=== PATIENT | female | born 1960 | race African-American/Black ===

== ENCOUNTER 2016-10-25 09:51 | Inpatient (IN) | payer MEDICARE, MEDICAID ==
[~2016-10-25] VITALS: Ht 160 cm; Wt 82.6 kg
[2016-10-25] MEDS: IPRATROPIUM/ALBUTEROL 0.5-3(2.5)MG/3ML NEB HHN SCH (00:45)
[~2016-10-25 09:51] MED LIST: CLOP75TA33 PO; DES150 PO; GABA-531 PO; LOVA40TA73 PO; NIFE90TA34 PO
[2016-10-25] MEDS ORDERED: ALBUTEROL (0.083%) 2.5MG/3ML NEB HHN STA (09:55)
[2016-10-25] MEDS ORDERED: IPRATROPIUM BROMIDE (0.02%) 0.5MG/2.5ML NEB HHN STA (09:55)
[2016-10-25] MEDS ORDERED: METHYLPREDNISOLONE SOD SUCC 125 MG/2 ML VIAL IV STA (09:55)
[2016-10-25 10:23] LABS: EOSINOPHILS % 3.5 % (0.0-5.0); HEMATOCRIT. 34.2 % (36.0-48.0); HEMOGLOBIN. 11.6 g/dL (12.0-16.0); LYMPHOCYTES % 21.9 % (20.0-50.0); MEAN CORPUSCULAR HEMOGLOBIN 31.5 pg (28.0-32.0); MEAN CORPUSCULAR VOLUME 92.9 fL (81.0-99.0); MEAN PLATELET VOLUME 8.2 fl (7.4-10.4); MONOCYTES % 6.7 % (2.0-8.0); NEUTROPHILS % 66.9 % (40.0-76.0); PLATELET 223 x1000/uL (130-400); RED BLOOD CELL COUNT 3.68 mill/uL (4.2-5.4); RED CELL DISTRIBUTION WIDTH 15.7 % (11.6-14.6)
[2016-10-25 10:41] LABS: CARBON DIOXIDE 31 mEq/L (21-32); CHLORIDE 101 mEq/L (98-107); PHOSPHORUS 3.2 mg/dL (2.5-4.9); TROPONIN I < 0.02 ng/mL (0.00-0.04)
[2016-10-25] MEDS ORDERED: LEVOFLOXACIN 500MG PREMIX 100 ML IV ONE (10:45)
[2016-10-25 10:47] LABS: INR 1.1; PARTIAL THROMBOPLASTIN TIME 39.4 sec (23.4-31.0); PROTHROMBIN TIME 11.4 sec (9.4-11.6)
[2016-10-25 12:17] LABS: CLARITY URINE CLEAR (CLEAR); COLOR URINE YELLOW (YELLOW); GLUCOSE URINE NEGATIVE (NEGATIVE); KETONES URINE NEGATIVE (NEGATIVE); LEUKOCYTE ESTERASE URINE NEGATIVE (NEGATIVE); NITRITE URINE NEGATIVE (NEGATIVE); OCCULT BLOOD URINE NEGATIVE (NEGATIVE); PH URINE 7.5 (4.5-8.0); PROTEIN URINE 2+ (NEGATIVE); SPECIFIC GRAVITY URINE 1.012 (1.005-1.030); UROBILINOGEN URINE 0.2 E.U./dL (0.2-1.0)
[2016-10-25 12:38] VITALS: BP 139/53
[2016-10-25 12:46] VITALS: BP 139/53
[2016-10-25] MEDS: CLONIDINE 0.2MG TABLET PO SCH ×2 (15:07→21:37)
[2016-10-25 16:00] VITALS: BP 144/72
[2016-10-25] MEDS ORDERED: ACETAMINOPHEN 325MG TABLET PO PRN (17:00)
[2016-10-25] MEDS: ENOXAPARIN 30MG/0.3ML SYR SUBCUT SCH ×2 (17:00→18:22)
[2016-10-25] MEDS ORDERED: GUAIFENESIN 200MG/10ML SUGAR FREE UDC PO PRN (17:00)
[2016-10-25] MEDS ORDERED: ERGOCALCIFEROL 50000UNITS CAPSULE PO SCH (17:00)
[2016-10-25] MEDS ORDERED: DEXTROSE 50% WATER 50ML SYRINGE IV PRN (18:15)
[2016-10-25] MEDS: CINACALCET HCL 30MG TABLET PO SCH (18:20)
[2016-10-25] MEDS: FERROUS SULFATE 325MG TABLET PO SCH (18:20)
[2016-10-25] MEDS: CALCIUM ACETATE 667MG CAPSULE PO SCH (18:20)
[2016-10-25] MEDS: CLOPIDOGREL 75MG TABLET PO SCH (18:21)
[2016-10-25] MEDS: PREDNISONE 20MG TABLET PO SCH (18:21)
[2016-10-25] MEDS: DOCUSATE SODIUM 100MG CAPSULE PO SCH (18:21)
[2016-10-25] MEDS: NIFEDIPINE XL 90MG TAB PO SCH (18:21)
[2016-10-25] MEDS: INSULIN LISPRO 100 UNITS/ML SUBCUT SCH ×2 (18:47→21:38)
[2016-10-25 20:00] VITALS: BP 165/71
[2016-10-25] MEDS ORDERED: NORTRIPTYLINE HCL 10MG CAPSULE PO NR (21:00)
[2016-10-25] MEDS ORDERED: CARVEDILOL 12.5MG TABLET PO SCH (21:00)
[2016-10-25] MEDS ORDERED: PREGABALIN 50 MG CAPSULE PO SCH (21:00)
[2016-10-25] MEDS: GUAIFENESIN 600MG ER TABLET PO SCH (21:36)
[2016-10-25] MEDS: CARVEDILOL 12.5MG TABLET PO SCH (21:36)
[2016-10-25] MEDS: PREGABALIN 50 MG CAPSULE PO SCH (21:37)
[2016-10-25] MEDS: BLOOD SUGAR DIAGNOSTIC STRIP TEST SCH (21:38)
[2016-10-25] MEDS: INSULIN DETEMIR UD 100 UNITS/ML SYR SUBCUT SCH (21:40)
[2016-10-25 23:39] LABS: CREATINE KINASE 159 IU/L (26-192); CREATINE KINASE MB FRACTION 1.4 ng/mL (0.5-3.6); TROPONIN I < 0.02 ng/mL (0.00-0.04)
[2016-10-26 00:23] VITALS: BP 128/69
[2016-10-26] MEDS: TEMAZEPAM 15MG CAPSULE PO PRN ×2 (00:25→21:59)
[2016-10-26 04:00] VITALS: BP 144/65
[2016-10-26] MEDS: IPRATROPIUM/ALBUTEROL 0.5-3(2.5)MG/3ML NEB HHN SCH ×2 (04:45→16:06)
[2016-10-26] MEDS: CLONIDINE 0.2MG TABLET PO SCH ×3 (05:56→21:59)
[2016-10-26 06:30] LABS: HEMATOCRIT. 33.9 % (36.0-48.0); HEMOGLOBIN. 11.4 g/dL (12.0-16.0); MEAN CORPUSCULAR HEMOGLOBIN 31.5 pg (28.0-32.0); MEAN CORPUSCULAR VOLUME 93.5 fL (81.0-99.0); MEAN PLATELET VOLUME 8.5 fl (7.4-10.4); PLATELET 204 x1000/uL (130-400); RED BLOOD CELL COUNT 3.63 mill/uL (4.2-5.4); RED CELL DISTRIBUTION WIDTH 15.8 % (11.6-14.6)
[2016-10-26 06:57] LABS: CARBON DIOXIDE 27 mEq/L (21-32); CHLORIDE 100 mEq/L (98-107); CREATINE KINASE 140 IU/L (26-192); CREATINE KINASE MB FRACTION 1.2 ng/mL (0.5-3.6); HDL CHOLESTEROL 57 mg/dL (40-59); LDL CHOLESTEROL 61 mg/dL (5-100); PHOSPHORUS 2.2 mg/dL (2.5-4.9); TROPONIN I < 0.02 ng/mL (0.00-0.04)
[2016-10-26] MEDS: BLOOD SUGAR DIAGNOSTIC STRIP TEST SCH ×4 (07:13→21:59)
[2016-10-26 08:00] VITALS: BP 152/79
[2016-10-26] MEDS: FERROUS SULFATE 325MG TABLET PO SCH ×3 (08:10→17:25)
[2016-10-26] MEDS: DOCUSATE SODIUM 100MG CAPSULE PO SCH ×2 (08:21→17:25)
[2016-10-26] MEDS: GUAIFENESIN 600MG ER TABLET PO SCH ×2 (08:21→21:59)
[2016-10-26] MEDS: NIFEDIPINE XL 90MG TAB PO SCH (08:22)
[2016-10-26] MEDS: CALCIUM ACETATE 667MG CAPSULE PO SCH ×2 (08:22→12:45)
[2016-10-26] MEDS: CINACALCET HCL 30MG TABLET PO SCH (08:22)
[2016-10-26] MEDS: CARVEDILOL 12.5MG TABLET PO SCH ×2 (08:22→21:59)
[2016-10-26] MEDS: PREDNISONE 20MG TABLET PO SCH (08:23)
[2016-10-26] MEDS: PREGABALIN 50 MG CAPSULE PO SCH ×2 (08:23→21:59)
[2016-10-26] MEDS: FUROSEMIDE 40MG TABLET PO SCH (08:23)
[2016-10-26] MEDS: CLOPIDOGREL 75MG TABLET PO SCH (08:23)
[2016-10-26] MEDS: INSULIN LISPRO 100 UNITS/ML SUBCUT SCH ×4 (08:26→21:58)
[2016-10-26] MEDS ORDERED: CINACALCET HCL 30MG TABLET PO SCH (09:00)
[2016-10-26 12:00] VITALS: BP 140/69
[2016-10-26] MEDS ORDERED: IOHEXOL-350 100 ML BOTTLE ONE (14:35)
[2016-10-26] MEDS ORDERED: SODIUM CHLORIDE 0.9% 10ML VIAL ONE (14:35)
[2016-10-26 16:00] VITALS: BP 139/73
[2016-10-26] MEDS: ENOXAPARIN 30MG/0.3ML SYR SUBCUT SCH (17:00)
[2016-10-26] MEDS ORDERED: ALBUTEROL (0.083%) 2.5MG/3ML NEB HHN PRN (17:00)
[2016-10-26] MEDS: FLUTICASONE/VILANTEROL 200-25 BLST.W.DEV ORI SCH (18:00)
[2016-10-26] MEDS ORDERED: CALCIUM ACETATE 667MG CAPSULE PO SCH (18:10)
[2016-10-26 20:00] VITALS: BP 140/65
[2016-10-26 20:29] LABS: PLATELET ESTIMATE NORMAL
[2016-10-26] MEDS: INSULIN DETEMIR UD 100 UNITS/ML SYR SUBCUT SCH (21:59)
[2016-10-27] VITALS: BP 157/72
[2016-10-27 04:00] VITALS: BP 158/74
[2016-10-27] MEDS: CLONIDINE 0.2MG TABLET PO SCH (06:24)
[2016-10-27 08:00] VITALS: BP 114/92
[2016-10-27] MEDS: FERROUS SULFATE 325MG TABLET PO SCH ×2 (08:30→12:55)
[2016-10-27] MEDS: CINACALCET HCL 30MG TABLET PO SCH (08:30)
[2016-10-27] MEDS: FUROSEMIDE 40MG TABLET PO SCH (08:30)
[2016-10-27] MEDS: CLOPIDOGREL 75MG TABLET PO SCH (08:30)
[2016-10-27] MEDS: PREGABALIN 50 MG CAPSULE PO SCH (08:31)
[2016-10-27] MEDS: CARVEDILOL 12.5MG TABLET PO SCH (08:32)
[2016-10-27] MEDS: GUAIFENESIN 600MG ER TABLET PO SCH (08:34)
[2016-10-27] MEDS: INSULIN LISPRO 100 UNITS/ML SUBCUT SCH ×2 (08:34→12:54)
[2016-10-27] MEDS: BLOOD SUGAR DIAGNOSTIC STRIP TEST SCH ×2 (08:34→12:12)
[2016-10-27] MEDS: NIFEDIPINE XL 90MG TAB PO SCH (08:35)
[2016-10-27] MEDS: PREDNISONE 20MG TABLET PO SCH (08:37)
[2016-10-27] MEDS: DOCUSATE SODIUM 100MG CAPSULE PO SCH (08:37)
[2016-10-27 12:00] VITALS: BP 152/86
[2016-10-27] MEDS: FLUTICASONE/VILANTEROL 200-25 BLST.W.DEV ORI SCH (12:10)
== END 2016-10-27 13:30 | disposition left against medical advice (07) | DRG 190 ==
LOC: ER 10:15 → EDBEDREQ 10:38 → ENRESERV 11:10 → 7WST 12:42
PROVIDERS: ADMIT Internal Medicine Pulmonary Disease; ATTEND Internal Medicine Pulmonary Disease
DX: J44.1 Chronic obstructive pulmonary disease with (acute) exacerbation (principal); N18.6 End stage renal disease; I13.2 Hypertensive heart and chronic kidney disease with heart failure and with stage 5 chronic kidney disease, or end stage renal disease; E11.22 Type 2 diabetes mellitus with diabetic chronic kidney disease; E11.40 Type 2 diabetes mellitus with diabetic neuropathy, unspecified; I50.9 Heart failure, unspecified; E11.51 Type 2 diabetes mellitus with diabetic peripheral angiopathy without gangrene; Z53.21 Procedure and treatment not carried out due to patient leaving prior to being seen by health care provider; D64.9 Anemia, unspecified; E78.00 Pure hypercholesterolemia, unspecified; M54.6 Pain in thoracic spine; E78.5 Hyperlipidemia, unspecified; Z96.1 Presence of intraocular lens; E83.39 Other disorders of phosphorus metabolism; F17.210 Nicotine dependence, cigarettes, uncomplicated; J06.9 Acute upper respiratory infection, unspecified; J98.01 Acute bronchospasm; Z86.73 Personal history of transient ischemic attack (TIA), and cerebral infarction without residual deficits; Z90.710 Acquired absence of both cervix and uterus; Z98.41 Cataract extraction status, right eye; Z98.42 Cataract extraction status, left eye; Z99.2 Dependence on renal dialysis; Z79.899 Other long term (current) drug therapy
CPT/HCPCS: 36415; 71010; 71275; 80048; 80053; 80061; 81001; 82550; 82553; 82962; 83605; 83735; 84100; 84484; 85025; 85610; 85730; 87040; 87086; 93005; 94640; 94644; 94664; 96365; 96375; 99291; A4216; J1650; J1815; J1956; J2930; J7030; J7040; J7512; J7611; J7620; Q9967

== ENCOUNTER 2018-02-11 15:05 | Inpatient (IN) | payer MEDICARE, MEDICAID ==
[~2018-02-11] VITALS: Ht 157.5 cm; Wt 76.2 kg
[~2018-02-11 15:05] MED LIST changes: +PIPERACILLIN/TAZOBACTAM 3.375GM/50ML PREMIX IV SCH
[2018-02-11] MEDS ORDERED: MORPHINE SULFATE 4 MG/ML CPJ (NOT FOR IM USE) IV STA (17:40)
[2018-02-11] MEDS ORDERED: VANCOMYCIN 1 G PREMIX 200 ML IV SCH (18:00)
[2018-02-11 19:03] LABS: BASOPHILS % 0.5 % (0.0-2.0); EOSINOPHILS % 1.6 % (0.0-5.0); HEMOGLOBIN. 7.4 g/dL (12.0-16.0); LYMPHOCYTES % 9.4 % (20.0-50.0); MEAN CORPUSCULAR HEMOGLOBIN 33.4 pg (28.0-32.0); MEAN CORPUSCULAR VOLUME 99.8 fL (81.0-99.0); MEAN PLATELET VOLUME 7.5 fl (7.4-10.4); MONOCYTES % 4.9 % (2.0-8.0); NEUTROPHILS % 83.6 % (40.0-76.0); PLATELET 487 x1000/uL (130-400); RED CELL DISTRIBUTION WIDTH 15.1 % (11.6-14.6)
[2018-02-11 19:10] LABS: CHLORIDE 97 mEq/L (98-107); INR 1.1; PROTHROMBIN TIME 10.7 sec (9.1-11.1)
[2018-02-11 19:26] LABS: CLARITY URINE CLOUDY (CLEAR); COLOR URINE YELLOW (YELLOW); KETONES URINE NEGATIVE (NEGATIVE); LEUKOCYTE ESTERASE URINE 1+ (NEGATIVE); NITRITE URINE NEGATIVE (NEGATIVE); OCCULT BLOOD URINE NEGATIVE (NEGATIVE); PH URINE 6.5 (4.5-8.0); PROTEIN URINE 2+ (NEGATIVE); SPECIFIC GRAVITY URINE 1.017 (1.005-1.030); UROBILINOGEN URINE 0.2 E.U./dL (0.2-1.0)
[2018-02-11] MEDS ORDERED: ENOXAPARIN 40MG/0.4ML SYR SUBCUT SCH (22:45)
[2018-02-11] MEDS ORDERED: MAGNESIUM/ALUMINUM HYDROXIDE/SIMETHICONE 30ML UDC PO PRN (22:45)
[2018-02-11] MEDS ORDERED: IPRATROPIUM/ALBUTEROL 0.5-3(2.5)MG/3ML NEB INH PRN (22:45)
[2018-02-11] MEDS ORDERED: NITROGLYCERIN 0.4MG TABLET SL SL PRN (22:45)
[2018-02-11] MEDS ORDERED: GUAIFENESIN 200MG/10ML SUGAR FREE UDC PO PRN (22:45)
[2018-02-11] MEDS ORDERED: DIPHENHYDRAMINE 50MG/ML VIAL IV PRN (22:45)
[2018-02-11] MEDS ORDERED: DEXTROSE 50% WATER 50ML SYRINGE IV PRN (22:45)
[2018-02-11] MEDS ORDERED: PIPERACILLIN/TAZ 3.375G PREMIX 50 ML IV SCH (22:45)
[2018-02-11] MEDS ORDERED: DOCUSATE SODIUM 100MG CAPSULE PO PRN (22:45)
[2018-02-12] VITALS (8 sets, daily range): BP systolic 128–190; BP diastolic 69–88
[2018-02-12 00:01] LABS: FOLIC ACID (FOLATE) SERUM 10.3 ng/mL (>5.38)
[2018-02-12] MEDS: MORPHINE SULFATE 4 MG/ML CPJ (NOT FOR IM USE) IV PRN ×4 (03:12→20:17)
[2018-02-12] MEDS ORDERED: COR12 MT (03:55)
[2018-02-12] MEDS ORDERED: CEPH500C2 MT (03:55)
[2018-02-12] MEDS ORDERED: CINA30 MT (03:55)
[2018-02-12] MEDS ORDERED: FURO-151 MT (03:55)
[2018-02-12] MEDS ORDERED: CALC667C MT (03:55)
[2018-02-12] MEDS ORDERED: CLON0.2T MT (03:55)
[2018-02-12] MEDS ORDERED: SULF-288 MT (03:55)
[2018-02-12] MEDS: PIPERACILLIN/TAZ 2.25G PREMIX 50 ML IV SCH ×3 (05:35→20:16)
[2018-02-12] MEDS: TRAMADOL 50MG TABLET PO PRN (06:16)
[2018-02-12] MEDS: BLOOD SUGAR DIAGNOSTIC STRIP TEST SCH ×5 (06:21→21:00)
[2018-02-12 08:16] LABS: *AMPHETAMINES SCREEN URINE NEGATIVE (NEGATIVE); *BARBITURATES SCREEN URINE NEGATIVE (NEGATIVE); *BENZODIAZEPINES SCREEN URINE NEGATIVE (NEGATIVE); CANNABINOID URINE SCREEN NEGATIVE (NEGATIVE); PHENCYCLIDINE URINE SCREEN NEGATIVE (NEGATIVE)
[2018-02-12 08:17] LABS: *COCAINE SCREEN URINE NEGATIVE (NEGATIVE); METHADONE URINE SCREEN NEGATIVE (NEGATIVE); OPIATES URINE SCREEN PRESUMTIVE POSITIVE (NEGATIVE)
[2018-02-12] MEDS: CLONIDINE 0.1MG TABLET PO PRN (08:33)
[2018-02-12] MEDS: SEVELAMER CARBONATE 800 MG TABLET PO SCH ×3 (08:33→17:42)
[2018-02-12] MEDS: ZINC SULFATE 220 MG ( 50 ) CAPSULE PO SCH (08:41)
[2018-02-12] MEDS: NIFEDIPINE XL 90MG TAB PO SCH (08:42)
[2018-02-12] MEDS: ASCORBIC ACID 500 MG TABLET PO SCH ×2 (08:42→17:42)
[2018-02-12] MEDS: FAMOTIDINE 20MG TABLET PO SCH (08:42)
[2018-02-12] MEDS: FOLIC ACID/VITAMIN B COMP W-C TABLET PO SCH (08:42)
[2018-02-12] MEDS: ENOXAPARIN 30MG/0.3ML SYR SUBCUT SCH (08:43)
[2018-02-12] MEDS ORDERED: FAMOTIDINE 20MG TABLET PO SCH (09:00)
[2018-02-12] MEDS: INSULIN LISPRO 100 UNITS/ML SUBCUT SCH ×4 (09:18→20:37)
[2018-02-12] MEDS ORDERED: VANCOMYCIN 750 MG PREMIX 150 ML IV SCH (10:30)
[2018-02-12] MEDS: EPOETIN ALFA 10000UNITS/ML VIAL SUBCUT SCH (20:16)
[2018-02-13] VITALS: BP 193/80
[2018-02-13] MEDS: CLONIDINE 0.1MG TABLET PO PRN ×2 (00:39→13:01)
[2018-02-13 01:45] VITALS: BP 174/77
[2018-02-13] MEDS: TRAMADOL 50MG TABLET PO PRN (04:30)
[2018-02-13] MEDS: MORPHINE SULFATE 4 MG/ML CPJ (NOT FOR IM USE) IV PRN ×2 (05:16→13:13)
[2018-02-13] MEDS: PIPERACILLIN/TAZ 2.25G PREMIX 50 ML IV SCH ×3 (06:22→22:16)
[2018-02-13 08:00] VITALS: BP 185/75
[2018-02-13] MEDS: FOLIC ACID/VITAMIN B COMP W-C TABLET PO SCH (08:47)
[2018-02-13] MEDS: ENOXAPARIN 30MG/0.3ML SYR SUBCUT SCH (08:47)
[2018-02-13] MEDS: ASCORBIC ACID 500 MG TABLET PO SCH ×2 (08:48→17:48)
[2018-02-13] MEDS: FAMOTIDINE 20MG TABLET PO SCH (08:48)
[2018-02-13] MEDS: SEVELAMER CARBONATE 800 MG TABLET PO SCH ×3 (08:48→17:48)
[2018-02-13] MEDS: ZINC SULFATE 220 MG ( 50 ) CAPSULE PO SCH (08:48)
[2018-02-13] MEDS: LORAZEPAM 0.5MG TABLET PO PRN ×2 (08:48→23:16)
[2018-02-13] MEDS: NIFEDIPINE XL 90MG TAB PO SCH (08:48)
[2018-02-13] MEDS: INSULIN LISPRO 100 UNITS/ML SUBCUT SCH ×4 (08:57→21:00)
[2018-02-13 12:00] VITALS: BP 178/87
[2018-02-13] MEDS: LOSARTAN POTASSIUM 50 MG TABLET PO SCH (12:15)
[2018-02-13] MEDS: BLOOD SUGAR DIAGNOSTIC STRIP TEST SCH ×3 (12:20→20:58)
[2018-02-13 16:00] VITALS: BP 175/85
[2018-02-13 17:18] LABS: HEMATOCRIT. 25.2 % (36.0-48.0); HEMOGLOBIN. 8.2 g/dL (12.0-16.0); MEAN CORPUSCULAR HEMOGLOBIN 32.4 pg (28.0-32.0); MEAN CORPUSCULAR VOLUME 99.8 fL (81.0-99.0); MEAN PLATELET VOLUME 7.7 fl (7.4-10.4); PLATELET 511 x1000/uL (130-400); RED BLOOD CELL COUNT 2.52 mill/uL (4.2-5.4); RED CELL DISTRIBUTION WIDTH 15.3 % (11.6-14.6)
[2018-02-13 17:57] LABS: PHOSPHORUS 7.5 mg/dL (2.5-4.9)
[2018-02-13 18:02] LABS: PLATELET ESTIMATE INCREASED
[2018-02-13 20:00] VITALS: BP 158/72
[2018-02-13] MEDS ORDERED: VANCOMYCIN 750 MG PREMIX 150 ML IV NR (20:00)
[2018-02-13] MEDS: NIFEDIPINE XL 60MG TAB PO SCH (20:56)
[2018-02-13] MEDS: ONDANSETRON HCL 4MG/2ML INJ IV PRN (23:16)
[2018-02-14] VITALS: BP 174/77
[2018-02-14] MEDS: CLONIDINE 0.1MG TABLET PO PRN (02:46)
[2018-02-14] MEDS: MORPHINE SULFATE 4 MG/ML CPJ (NOT FOR IM USE) IV PRN (02:47)
[2018-02-14 04:22] VITALS: BP 147/73
[2018-02-14] MEDS: BLOOD SUGAR DIAGNOSTIC STRIP TEST SCH ×4 (06:35→20:40)
[2018-02-14] MEDS: PIPERACILLIN/TAZ 2.25G PREMIX 50 ML IV SCH ×3 (06:35→20:38)
[2018-02-14 07:05] LABS: HEMATOCRIT. 24.4 % (36.0-48.0); MEAN CORPUSCULAR HEMOGLOBIN 33.1 pg (28.0-32.0); MEAN CORPUSCULAR VOLUME 100.7 fL (81.0-99.0); MEAN PLATELET VOLUME 7.5 fl (7.4-10.4); PLATELET 501 x1000/uL (130-400); RED BLOOD CELL COUNT 2.42 mill/uL (4.2-5.4); RED CELL DISTRIBUTION WIDTH 15.6 % (11.6-14.6)
[2018-02-14 08:00] VITALS: BP 132/93
[2018-02-14 08:13] LABS: PHOSPHORUS 8.9 mg/dL (2.5-4.9)
[2018-02-14] MEDS: LOSARTAN POTASSIUM 50 MG TABLET PO SCH (08:38)
[2018-02-14] MEDS: ASCORBIC ACID 500 MG TABLET PO SCH ×2 (08:38→16:58)
[2018-02-14] MEDS: ZINC SULFATE 220 MG ( 50 ) CAPSULE PO SCH (08:38)
[2018-02-14] MEDS: FAMOTIDINE 20MG TABLET PO SCH (08:38)
[2018-02-14] MEDS: INSULIN LISPRO 100 UNITS/ML SUBCUT SCH ×3 (08:40→16:59)
[2018-02-14] MEDS: NIFEDIPINE XL 60MG TAB PO SCH ×2 (08:41→20:40)
[2018-02-14] MEDS: SEVELAMER CARBONATE 800 MG TABLET PO SCH ×3 (08:41→16:58)
[2018-02-14] MEDS: CALCIUM ACETATE 667MG CAPSULE PO SCH ×3 (08:42→16:58)
[2018-02-14] MEDS: ENOXAPARIN 30MG/0.3ML SYR SUBCUT SCH (08:42)
[2018-02-14] MEDS: FOLIC ACID/VITAMIN B COMP W-C TABLET PO SCH (08:42)
[2018-02-14] MEDS: ONDANSETRON HCL 4MG/2ML INJ IV PRN (09:52)
[2018-02-14 12:00] VITALS: BP 152/82
[2018-02-14] MEDS: ACETAMINOPHEN 325MG TABLET PO PRN (12:43)
[2018-02-14] MEDS: TRAMADOL 50MG TABLET PO PRN (14:58)
[2018-02-14 16:00] VITALS: BP 96/63
[2018-02-14 20:00] VITALS: BP 136/76
[2018-02-14 22:42] LABS: PLATELET ESTIMATE INCREASED
[2018-02-15] VITALS (7 sets, daily range): BP systolic 130–164; BP diastolic 53–79
[2018-02-15] MEDS: ZOLPIDEM TARTRATE 5MG TABLET PO PRN ×2 (02:33→21:39)
[2018-02-15] MEDS: INSULIN LISPRO 100 UNITS/ML SUBCUT SCH ×5 (02:39→21:13)
[2018-02-15] MEDS: PIPERACILLIN/TAZ 2.25G PREMIX 50 ML IV SCH ×3 (05:58→21:00)
[2018-02-15] MEDS: BLOOD SUGAR DIAGNOSTIC STRIP TEST SCH ×4 (07:13→21:14)
[2018-02-15] MEDS: CALCIUM ACETATE 667MG CAPSULE PO SCH ×3 (07:50→18:53)
[2018-02-15] MEDS: FOLIC ACID/VITAMIN B COMP W-C TABLET PO SCH (09:57)
[2018-02-15] MEDS: SEVELAMER CARBONATE 800 MG TABLET PO SCH ×3 (09:57→18:54)
[2018-02-15] MEDS: FAMOTIDINE 20MG TABLET PO SCH (09:58)
[2018-02-15] MEDS: NIFEDIPINE XL 60MG TAB PO SCH ×2 (09:58→20:47)
[2018-02-15] MEDS: ASCORBIC ACID 500 MG TABLET PO SCH ×2 (09:58→18:53)
[2018-02-15] MEDS: LOSARTAN POTASSIUM 50 MG TABLET PO SCH (09:58)
[2018-02-15] MEDS: ZINC SULFATE 220 MG ( 50 ) CAPSULE PO SCH (09:59)
[2018-02-15] MEDS: ENOXAPARIN 30MG/0.3ML SYR SUBCUT SCH (10:01)
[2018-02-15] MEDS ORDERED: DEXAMETHASONE 4MG/ML 1ML VIAL ONE (13:10)
[2018-02-15] MEDS ORDERED: TRIAMCINOLONE ACETONIDE 40MG/ML 1ML VIAL ONE (13:10)
[2018-02-15] MEDS ORDERED: LIDOCAINE HCL/PF 1% 10 MG/ML 5ML VIAL ONE ×2 (13:11→16:15)
[2018-02-15] MEDS ORDERED: GENTAMICIN SULF 40MG/ML 2ML VIAL ONE (13:11)
[2018-02-15] MEDS ORDERED: BACITRACIN 15GM TUBE TOP ONE (13:11)
[2018-02-15] MEDS ORDERED: BUPIVACAINE HCL/PF 0.5% (5MG/ML) 10ML ONE (13:11)
[2018-02-15] MEDS ORDERED: PROPOFOL 200MG/20ML VIAL IV ONE (16:14)
[2018-02-15] MEDS ORDERED: FENTANYL CITRATE/PF 50MCG/ML 2ML VIAL ONE (16:14)
[2018-02-15] MEDS ORDERED: GLYCOPYRROLATE 0.2 MG/ML 2ML VIAL ONE (16:14)
[2018-02-15] MEDS ORDERED: MIDAZOLAM HCL 2 MG/2 ML VIAL ONE (16:14)
[2018-02-15] MEDS ORDERED: SUCCINYLCHOLINE CHLORIDE 200MG/10ML IV ONE (16:15)
[2018-02-15] MEDS ORDERED: ONDANSETRON HCL 4MG/2ML INJ ONE (16:15)
[2018-02-15] MEDS ORDERED: METOCLOPRAMIDE HCL 10MG/2ML VIAL ONE (16:15)
[2018-02-15] MEDS ORDERED: ONDANSETRON HCL 4MG/2ML INJ IV PRN (16:45)
[2018-02-15] MEDS ORDERED: MORPHINE SULFATE 4 MG/ML CPJ (NOT FOR IM USE) IV PRN (16:45)
[2018-02-15] MEDS ORDERED: MEPERIDINE HCL/PF 25MG/ML CPJ IV PRN (16:45)
[2018-02-15] MEDS ORDERED: HYDROMORPHONE HCL/PF 2MG/ML CPJ IV PRN (16:45)
[2018-02-15] MEDS ORDERED: SODIUM CHLORIDE 0.9% 1,000 ML IV ONE (17:00)
[2018-02-15] MEDS: EPOETIN ALFA 10000UNITS/ML VIAL SUBCUT SCH (20:47)
[2018-02-16] VITALS (12 sets, daily range): BP systolic 114–184; BP diastolic 47–92
[2018-02-16] MEDS: LORAZEPAM 0.5MG TABLET PO PRN ×2 (01:18→22:12)
[2018-02-16] MEDS: PIPERACILLIN/TAZ 2.25G PREMIX 50 ML IV SCH ×3 (04:10→20:38)
[2018-02-16] MEDS: BLOOD SUGAR DIAGNOSTIC STRIP TEST SCH ×4 (06:39→21:29)
[2018-02-16 06:40] LABS: MEAN CORPUSCULAR HEMOGLOBIN 33.2 pg (28.0-32.0); MEAN CORPUSCULAR VOLUME 100.8 fL (81.0-99.0); MEAN PLATELET VOLUME 7.7 fl (7.4-10.4); PLATELET 442 x1000/uL (130-400); RED BLOOD CELL COUNT 1.87 mill/uL (4.2-5.4); RED CELL DISTRIBUTION WIDTH 15.4 % (11.6-14.6)
[2018-02-16 06:57] LABS: HEMOGLOBIN. 6.2 g/dL (12.0-16.0)
[2018-02-16 06:58] LABS: HEMATOCRIT. 18.9 % (36.0-48.0)
[2018-02-16 07:26] LABS: PHOSPHORUS 10.4 mg/dL (2.5-4.9)
[2018-02-16] MEDS: ENOXAPARIN 30MG/0.3ML SYR SUBCUT SCH (09:00)
[2018-02-16] MEDS: NIFEDIPINE XL 60MG TAB PO SCH ×2 (09:00→20:44)
[2018-02-16] MEDS: LOSARTAN POTASSIUM 50 MG TABLET PO SCH (09:00)
[2018-02-16] MEDS: FOLIC ACID/VITAMIN B COMP W-C TABLET PO SCH (09:39)
[2018-02-16] MEDS: ASCORBIC ACID 500 MG TABLET PO SCH ×2 (09:39→17:54)
[2018-02-16] MEDS: FAMOTIDINE 20MG TABLET PO SCH (09:40)
[2018-02-16] MEDS: SEVELAMER CARBONATE 800 MG TABLET PO SCH ×3 (09:40→17:55)
[2018-02-16] MEDS: ZINC SULFATE 220 MG ( 50 ) CAPSULE PO SCH (09:40)
[2018-02-16] MEDS: INSULIN LISPRO 100 UNITS/ML SUBCUT SCH ×4 (09:44→21:29)
[2018-02-16] MEDS ORDERED: VANCOMYCIN 1500MG in DEXTROSE 5% WATER 250ML IV NR (10:00)
[2018-02-16] MEDS: CALCIUM ACETATE 667MG CAPSULE PO SCH ×2 (13:19→17:54)
[2018-02-16 14:17] LABS: PLATELET ESTIMATE SLIGHTLY INCREASED
[2018-02-16 18:11] LABS: HEMATOCRIT 30.8 % (36.0-48.0); HEMOGLOBIN 10.1 g/dL (12.0-16.0); MEAN CORPUSCULAR HEMOGLOBIN 31.7 pg (28.0-32.0); MEAN CORPUSCULAR VOLUME 96.4 fL (81.0-99.0); PLATELET 458 x1000/uL (130-400); RED BLOOD CELL COUNT 3.19 mill/uL (4.2-5.4); RED CELL DISTRIBUTION WIDTH 15.6 % (11.6-14.6)
[2018-02-16] MEDS: MORPHINE SULFATE 4 MG/ML CPJ (NOT FOR IM USE) IV PRN ×2 (18:59→23:28)
[2018-02-16] MEDS: ZOLPIDEM TARTRATE 5MG TABLET PO PRN (20:38)
[2018-02-16] MEDS: CLONIDINE 0.1MG TABLET PO PRN ×2 (20:48→22:49)
[2018-02-17] VITALS: BP_SYST 160; BP_SYST 180; BP_DIAS 60; BP_DIAS 83
[2018-02-17 04:00] VITALS: BP 165/76
[2018-02-17] MEDS: PIPERACILLIN/TAZ 2.25G PREMIX 50 ML IV SCH ×3 (04:53→22:31)
[2018-02-17] MEDS: CLONIDINE 0.1MG TABLET PO PRN (04:54)
[2018-02-17 05:31] LABS: BASOPHILS % 0.8 % (0.0-2.0); EOSINOPHILS % 1.7 % (0.0-5.0); LYMPHOCYTES % 11.1 % (20.0-50.0); MEAN CORPUSCULAR HEMOGLOBIN 32.3 pg (28.0-32.0); MEAN CORPUSCULAR VOLUME 97.5 fL (81.0-99.0); MEAN PLATELET VOLUME 7.6 fl (7.4-10.4); NEUTROPHILS % 75.4 % (40.0-76.0); PLATELET 425 x1000/uL (130-400); RED BLOOD CELL COUNT 3.08 mill/uL (4.2-5.4); RED CELL DISTRIBUTION WIDTH 16.1 % (11.6-14.6)
[2018-02-17] MEDS: BLOOD SUGAR DIAGNOSTIC STRIP TEST SCH ×4 (07:20→21:00)
[2018-02-17 08:00] VITALS: BP 129/60
[2018-02-17] MEDS: FOLIC ACID/VITAMIN B COMP W-C TABLET PO SCH (08:24)
[2018-02-17] MEDS: ZINC SULFATE 220 MG ( 50 ) CAPSULE PO SCH (08:24)
[2018-02-17] MEDS: LOSARTAN POTASSIUM 50 MG TABLET PO SCH ×2 (08:24→22:33)
[2018-02-17] MEDS: CALCIUM ACETATE 667MG CAPSULE PO SCH ×4 (08:24→17:09)
[2018-02-17] MEDS: NIFEDIPINE XL 60MG TAB PO SCH ×2 (08:25→22:32)
[2018-02-17] MEDS ORDERED: LIDOCAINE HCL 1% 20ML VIAL (Pyxis) INJ ONE (08:25)
[2018-02-17] MEDS: FAMOTIDINE 20MG TABLET PO SCH (08:25)
[2018-02-17] MEDS ORDERED: SODIUM BICARBONATE 4% (2.4MEQ) 5ML VIAL IV ONE (08:25)
[2018-02-17] MEDS: SEVELAMER CARBONATE 800 MG TABLET PO SCH ×3 (08:25→16:58)
[2018-02-17] MEDS: ASCORBIC ACID 500 MG TABLET PO SCH ×2 (08:25→16:58)
[2018-02-17] MEDS: ENOXAPARIN 30MG/0.3ML SYR SUBCUT SCH ×2 (08:26→09:00)
[2018-02-17] MEDS: INSULIN LISPRO 100 UNITS/ML SUBCUT SCH ×3 (09:43→17:09)
[2018-02-17 12:00] VITALS: BP 130/61
[2018-02-17] MEDS: HYDRALAZINE HCL 25MG TABLET PO SCH ×2 (13:00→22:33)
[2018-02-17] MEDS: ACETAMINOPHEN 325MG TABLET PO PRN (16:59)
[2018-02-17 20:00] VITALS: BP 178/76
[2018-02-17] MEDS: MORPHINE SULFATE 4 MG/ML CPJ (NOT FOR IM USE) IV PRN (20:01)
[2018-02-17] MEDS: EPOETIN ALFA 10000UNITS/ML VIAL SUBCUT SCH (22:31)
[2018-02-18] VITALS (7 sets, daily range): BP systolic 126–160; BP diastolic 65–89
[2018-02-18] MEDS: INSULIN LISPRO 100 UNITS/ML SUBCUT SCH ×4 (01:01→17:50)
[2018-02-18] MEDS: PIPERACILLIN/TAZ 2.25G PREMIX 50 ML IV SCH ×2 (06:07→12:16)
[2018-02-18] MEDS: HYDRALAZINE HCL 25MG TABLET PO SCH ×2 (06:07→14:00)
[2018-02-18] MEDS: BLOOD SUGAR DIAGNOSTIC STRIP TEST SCH ×3 (06:42→17:20)
[2018-02-18 07:21] LABS: BASOPHILS % 0.5 % (0.0-2.0); HEMOGLOBIN. 10.2 g/dL (12.0-16.0); LYMPHOCYTES % 8.1 % (20.0-50.0); MEAN CORPUSCULAR HEMOGLOBIN 31.9 pg (28.0-32.0); MEAN CORPUSCULAR VOLUME 97.2 fL (81.0-99.0); MEAN PLATELET VOLUME 7.8 fl (7.4-10.4); MONOCYTES % 11.2 % (2.0-8.0); NEUTROPHILS % 77.2 % (40.0-76.0); PLATELET 435 x1000/uL (130-400); RED BLOOD CELL COUNT 3.19 mill/uL (4.2-5.4); RED CELL DISTRIBUTION WIDTH 16.1 % (11.6-14.6)
[2018-02-18] MEDS: SEVELAMER CARBONATE 800 MG TABLET PO SCH ×3 (07:50→17:50)
[2018-02-18] MEDS: CALCIUM ACETATE 667MG CAPSULE PO SCH ×3 (07:50→17:50)
[2018-02-18 07:52] LABS: PHOSPHORUS 7.2 mg/dL (2.5-4.9)
[2018-02-18] MEDS ORDERED: LIDOCAINE HCL 1% 20ML VIAL (Pyxis) INJ ONE (08:01)
[2018-02-18] MEDS ORDERED: SODIUM BICARBONATE 4% (2.4MEQ) 5ML VIAL IV ONE (08:01)
[2018-02-18] MEDS: ENOXAPARIN 30MG/0.3ML SYR SUBCUT SCH (08:31)
[2018-02-18] MEDS: LOSARTAN POTASSIUM 50 MG TABLET PO SCH (08:31)
[2018-02-18] MEDS: FAMOTIDINE 20MG TABLET PO SCH (08:31)
[2018-02-18] MEDS: ZINC SULFATE 220 MG ( 50 ) CAPSULE PO SCH (08:31)
[2018-02-18] MEDS: ASCORBIC ACID 500 MG TABLET PO SCH ×2 (08:31→17:00)
[2018-02-18] MEDS: NIFEDIPINE XL 60MG TAB PO SCH (08:31)
[2018-02-18] MEDS: FOLIC ACID/VITAMIN B COMP W-C TABLET PO SCH (08:31)
[2018-02-18] MEDS: MORPHINE SULFATE 4 MG/ML CPJ (NOT FOR IM USE) IV PRN ×2 (10:00→18:00)
== END 2018-02-18 20:20 | disposition home health service (06) | DRG 622 ==
LOC: ER 15:05 → 6EST 22:07 → SUPCPDRO 22:34 → ENRESERV 22:36 → 6EST 02-14 01:07
PROVIDERS: ADMIT Internal Medicine; ATTEND Internal Medicine
PROC: 5A1D70Z Performance of Urinary Filtration, Intermittent, Less than 6 Hours Per Day (ICD-10-PCS; 2018-02-12)
PROC: 0JBQ0ZZ Excision of Right Foot Subcutaneous Tissue and Fascia, Open Approach (ICD-10-PCS; principal; 2018-02-15)
PROC: 0QBR0ZZ Excision of Left Toe Phalanx, Open Approach (ICD-10-PCS; 2018-02-15)
PROC: 5A1D70Z Performance of Urinary Filtration, Intermittent, Less than 6 Hours Per Day (ICD-10-PCS; 2018-02-15)
PROC: 5A1D70Z Performance of Urinary Filtration, Intermittent, Less than 6 Hours Per Day (ICD-10-PCS; 2018-02-17)
PROC: 02HV33Z Insertion of Infusion Device into Superior Vena Cava, Percutaneous Approach (ICD-10-PCS; 2018-02-18)
PROC: B5181ZA Fluoroscopy of Superior Vena Cava using Low Osmolar Contrast, Guidance (ICD-10-PCS; 2018-02-18)
PROC: B548ZZA Ultrasonography of Superior Vena Cava, Guidance (ICD-10-PCS; 2018-02-18)
DX: E11.69 Type 2 diabetes mellitus with other specified complication (principal); E43 Unspecified severe protein-calorie malnutrition; L03.116 Cellulitis of left lower limb; I13.2 Hypertensive heart and chronic kidney disease with heart failure and with stage 5 chronic kidney disease, or end stage renal disease; L97.419 Non-pressure chronic ulcer of right heel and midfoot with unspecified severity; M86.8X6 Other osteomyelitis, lower leg; E11.621 Type 2 diabetes mellitus with foot ulcer; N18.6 End stage renal disease; E11.65 Type 2 diabetes mellitus with hyperglycemia; F17.210 Nicotine dependence, cigarettes, uncomplicated; D63.8 Anemia in other chronic diseases classified elsewhere; I50.9 Heart failure, unspecified; L97.529 Non-pressure chronic ulcer of other part of left foot with unspecified severity; J44.9 Chronic obstructive pulmonary disease, unspecified; E11.22 Type 2 diabetes mellitus with diabetic chronic kidney disease; E11.51 Type 2 diabetes mellitus with diabetic peripheral angiopathy without gangrene; E78.00 Pure hypercholesterolemia, unspecified; E78.5 Hyperlipidemia, unspecified; E11.42 Type 2 diabetes mellitus with diabetic polyneuropathy; F12.90 Cannabis use, unspecified, uncomplicated; L97.519 Non-pressure chronic ulcer of other part of right foot with unspecified severity; Z79.4 Long term (current) use of insulin; Z82.49 Family history of ischemic heart disease and other diseases of the circulatory system; Z83.3 Family history of diabetes mellitus; Z99.2 Dependence on renal dialysis; Z68.30 Body mass index [BMI] 30.0-30.9, adult; Z89.431 Acquired absence of right foot; Z90.710 Acquired absence of both cervix and uterus; Z91.14 Patient's other noncompliance with medication regimen; Z91.19 Patient's noncompliance with other medical treatment and regimen
CPT/HCPCS: 36415; 36569; 71045; 73630; 73660; 73718; 73721; 76937; 77001; 80048; 80061; 80202; 80305; 82607; 82746; 82962; 83036; 83540; 83550; 83605; 83735; 84100; 85027; 85651; 86140; 86850; 86900; 86920; 87070; 87075; 87077; 87186; 93005; 93923; 93970; 94640; 96365; 96375; 97162; 97166; 99285; C1725; C1893; J0330; J0885; J1100; J1200; J1580; J1650; J1815; J2250; J2270; J2405; J2543; J2704; J2765; J3010; J3301; J3370; J3490; J7040; J7050; J7060; J7620; P9016

== ENCOUNTER 2018-08-12 11:59 | Inpatient (IN) | payer MEDICARE, MEDICAID ==
[~2018-08-12] VITALS: Ht 160 cm; Wt 69.9 kg
[~2018-08-12 11:59] MED LIST changes: +CALC667C MT; +CEPH500C2 MT; +CINA30 MT; +CLON0.2T MT; +COR12 MT; -DES150 PO; +FURO-151 MT; -LOVA40TA73 PO; -PIPERACILLIN/TAZOBACTAM 3.375GM/50ML PREMIX IV SCH; +SULF-288 MT
[2018-08-12] MEDS ORDERED: SODIUM CHLORIDE 0.9% 500 ML IV ONE (12:19)
[2018-08-12 13:05] LABS: MEAN CORPUSCULAR HEMOGLOBIN 29.4 pg (28.0-32.0); MEAN PLATELET VOLUME 7.7 fl (7.4-10.4); PLATELET 429 x1000/uL (130-400); RED BLOOD CELL COUNT 1.41 mill/uL (4.2-5.4)
[2018-08-12 13:10] LABS: HEMOGLOBIN. 4.2 g/dL (12.0-16.0)
[2018-08-12 13:13] LABS: CHLORIDE 100 mEq/L (98-107)
[2018-08-12 13:17] LABS: ETHANOL BLOOD < 10 mg/dL
[2018-08-12 13:21] LABS: CREATINE KINASE 309 IU/L (26-192)
[2018-08-12 13:53] LABS: PLATELET ESTIMATE INCREASED
[2018-08-12 14:20] LABS: HCG SCREEN NEGATIVE
[2018-08-12] MEDS ORDERED: IPRATROPIUM/ALBUTEROL 0.5-3(2.5)MG/3ML NEB INH PRN (16:45)
[2018-08-12] MEDS ORDERED: CLONIDINE 0.1MG TABLET PO PRN (16:45)
[2018-08-12] MEDS ORDERED: ONDANSETRON HCL 4MG/2ML INJ IV PRN (16:45)
[2018-08-12] MEDS ORDERED: DEXTROSE 50% WATER 50ML SYRINGE IV PRN (16:45)
[2018-08-12] MEDS ORDERED: GUAIFENESIN 200MG/10ML SUGAR FREE UDC PO PRN (16:45)
[2018-08-12] MEDS ORDERED: DIPHENHYDRAMINE 50MG/ML VIAL IV PRN (16:45)
[2018-08-12] MEDS ORDERED: BLOOD SUGAR DIAGNOSTIC STRIP TEST SCH (17:00)
[2018-08-12] MEDS ORDERED: HYDROMORPHONE HCL/PF 2MG/ML CPJ IV PRN (17:05)
[2018-08-12] MEDS: SODIUM CHLORIDE 0.9% 1,000 ML IV SCH ×2 (17:24→20:45)
[2018-08-12 20:00] VITALS: BP 112/75
[2018-08-12 20:30] VITALS: BP 116/97
[2018-08-12 20:45] VITALS: BP 116/97
[2018-08-12] MEDS: INSULIN LISPRO 100 UNITS/ML SUBCUT SCH (21:00)
[2018-08-12 21:05] VITALS: BP 130/52
[2018-08-12] MEDS: HYDROMORPHONE HCL/PF 2MG/ML CPJ IV PRN (21:29)
[2018-08-12] MEDS: ACETAMINOPHEN 325MG TABLET PO PRN (21:30)
[2018-08-12] MEDS: BLOOD SUGAR DIAGNOSTIC STRIP TEST SCH (21:57)
[2018-08-12 22:00] VITALS: BP 100/68
[2018-08-12 23:12] VITALS: BP 120/34
[2018-08-13] VITALS (12 sets, daily range): BP systolic 101–179; BP diastolic 23–98
[2018-08-13 02:05] LABS: MEAN CORPUSCULAR HEMOGLOBIN 30.2 pg (28.0-32.0); MEAN CORPUSCULAR VOLUME 90.2 fL (81.0-99.0); PLATELET 282 x1000/uL (130-400); RED BLOOD CELL COUNT 2.27 mill/uL (4.2-5.4); RED CELL DISTRIBUTION WIDTH 16.1 % (11.6-14.6)
[2018-08-13 02:12] LABS: HEMATOCRIT. 20.5 % (36.0-48.0); HEMOGLOBIN. 6.8 g/dL (12.0-16.0)
[2018-08-13 03:26] LABS: PLATELET ESTIMATE NORMAL
[2018-08-13] MEDS: BLOOD SUGAR DIAGNOSTIC STRIP TEST SCH ×4 (06:36→20:50)
[2018-08-13] MEDS: INSULIN LISPRO 100 UNITS/ML SUBCUT SCH ×4 (08:00→21:02)
[2018-08-13] MEDS: CARVEDILOL 12.5MG TABLET PO SCH ×2 (13:14→20:50)
[2018-08-13] MEDS ORDERED: NIFEDIPINE 10MG CAPSULE PO SCH (14:00)
[2018-08-13] MEDS: PANTOPRAZOLE 40MG DR TABLET PO SCH ×2 (14:26→20:49)
[2018-08-13] MEDS: ACETAMINOPHEN 325MG TABLET PO PRN (20:50)
[2018-08-14] VITALS (8 sets, daily range): BP systolic 102–201; BP diastolic 53–96
[2018-08-14] MEDS: BLOOD SUGAR DIAGNOSTIC STRIP TEST SCH ×2 (06:40→12:05)
[2018-08-14] MEDS ORDERED: HYDROCODONE/ACETAMINOPHEN 5/325MG TABLET PO PRN (08:00)
[2018-08-14] MEDS: HYDROMORPHONE HCL/PF 2MG/ML CPJ IV PRN (08:14)
[2018-08-14] MEDS: CARVEDILOL 12.5MG TABLET PO SCH (08:40)
[2018-08-14] MEDS: PANTOPRAZOLE 40MG DR TABLET PO SCH (08:40)
[2018-08-14] MEDS ORDERED: GABAPENTIN 300MG CAPSULE PO SCH (11:00)
[2018-08-14] MEDS ORDERED: AMLODIPINE 10MG TABLET PO SCH (12:30)
== END 2018-08-14 13:24 | disposition left against medical advice (07) | DRG 377 ==
LOC: ER 11:59 → 5EST 13:58 → EDBEDREQSVC 14:00 → EDBEDREQ 14:00 → EDBEDREQSVC 17:18 → ENRESERV 17:24
PROVIDERS: ADMIT Internal Medicine; ATTEND Internal Medicine
PROC: 30233N1 Transfusion of Nonautologous Red Blood Cells into Peripheral Vein, Percutaneous Approach (ICD-10-PCS; principal; 2018-08-12)
PROC: 5A1D70Z Performance of Urinary Filtration, Intermittent, Less than 6 Hours Per Day (ICD-10-PCS; 2018-08-12)
PROC: 5A1D70Z Performance of Urinary Filtration, Intermittent, Less than 6 Hours Per Day (ICD-10-PCS; 2018-08-12)
DX: K92.1 Melena (principal); E43 Unspecified severe protein-calorie malnutrition; G93.41 Metabolic encephalopathy; N18.6 End stage renal disease; I13.2 Hypertensive heart and chronic kidney disease with heart failure and with stage 5 chronic kidney disease, or end stage renal disease; M86.8X8 Other osteomyelitis, other site; E11.52 Type 2 diabetes mellitus with diabetic peripheral angiopathy with gangrene; I96 Gangrene, not elsewhere classified; D50.0 Iron deficiency anemia secondary to blood loss (chronic); D72.829 Elevated white blood cell count, unspecified; E11.22 Type 2 diabetes mellitus with diabetic chronic kidney disease; E11.42 Type 2 diabetes mellitus with diabetic polyneuropathy; F17.210 Nicotine dependence, cigarettes, uncomplicated; I50.9 Heart failure, unspecified; J44.9 Chronic obstructive pulmonary disease, unspecified; K21.9 Gastro-esophageal reflux disease without esophagitis; F32.9 Major depressive disorder, single episode, unspecified; E11.21 Type 2 diabetes mellitus with diabetic nephropathy; E83.39 Other disorders of phosphorus metabolism; E11.319 Type 2 diabetes mellitus with unspecified diabetic retinopathy without macular edema; Z53.21 Procedure and treatment not carried out due to patient leaving prior to being seen by health care provider; E11.69 Type 2 diabetes mellitus with other specified complication; Z86.73 Personal history of transient ischemic attack (TIA), and cerebral infarction without residual deficits; Z89.511 Acquired absence of right leg below knee; Z90.710 Acquired absence of both cervix and uterus; Z91.15 Patient's noncompliance with renal dialysis; Z91.19 Patient's noncompliance with other medical treatment and regimen; Z99.2 Dependence on renal dialysis; Z89.611 Acquired absence of right leg above knee; Z95.820 Peripheral vascular angioplasty status with implants and grafts; Z68.27 Body mass index [BMI] 27.0-27.9, adult; Z79.899 Other long term (current) drug therapy
CPT/HCPCS: 36415; 71045; 80320; 82140; 82550; 82962; 83880; 84443; 84484; 84703; 86850; 86900; 86920; 93005; 96360; 96361; 99291; J1170; J1815; J7030; J7050; P9016; G0480

== ENCOUNTER 2018-08-15 22:14 | Inpatient (IN) | payer MEDICARE, MEDICAID ==
[~2018-08-15] VITALS: Ht 160 cm; Wt 68.9 kg
[2018-08-15] MEDS ORDERED: SODIUM CHLORIDE 0.9% 500 ML IV ONE (22:43)
[2018-08-15 23:36] LABS: EOSINOPHILS % 0.3 % (0.0-5.0); LYMPHOCYTES % 8.2 % (20.0-50.0); MEAN CORPUSCULAR HEMOGLOBIN 29.9 pg (28.0-32.0); MEAN PLATELET VOLUME 8.6 fl (7.4-10.4); MONOCYTES % 5.8 % (2.0-8.0); NEUTROPHILS % 84.7 % (40.0-76.0); PLATELET 296 x1000/uL (130-400); RED BLOOD CELL COUNT 1.47 mill/uL (4.2-5.4); RED CELL DISTRIBUTION WIDTH 16.6 % (11.6-14.6)
[2018-08-15 23:40] LABS: INR 1.3; PROTHROMBIN TIME 13.1 sec (9.6-11.0)
[2018-08-15 23:45] LABS: CHLORIDE 105 mEq/L (98-107); HEMATOCRIT. 13.4 % (36.0-48.0)
[2018-08-15 23:53] LABS: ETHANOL BLOOD < 10 mg/dL
[2018-08-15 23:54] LABS: HEMOGLOBIN. 4.4 g/dL (12.0-16.0)
[2018-08-16] VITALS (8 sets, daily range): BP systolic 133–178; BP diastolic 83–116
[2018-08-16] MEDS ORDERED: SODIUM CHLORIDE 0.9% 500 ML IV ONE (00:36)
[2018-08-16] MEDS ORDERED: FAMOTIDINE 20MG/2ML VIAL IV ONE (00:45)
[2018-08-16] MEDS ORDERED: PIPERACILLIN/TAZ 3.375G PREMIX 50 ML IV ONE (00:45)
[2018-08-16] MEDS ORDERED: VANCOMYCIN 1 G PREMIX 200 ML IV ONE (00:45)
[2018-08-16] MEDS ORDERED: ACETAMINOPHEN 325MG TABLET PO ONE (03:00)
[2018-08-16] MEDS ORDERED: PIPERACILLIN/TAZ 3.375G PREMIX 50 ML IV SCH (07:30)
[2018-08-16] MEDS ORDERED: ONDANSETRON HCL 4MG/2ML INJ IV PRN (07:30)
[2018-08-16] MEDS ORDERED: DEXTROSE 50% WATER 50ML SYRINGE IV PRN (07:30)
[2018-08-16] MEDS ORDERED: ACETAMINOPHEN 325MG TABLET PO PRN (07:30)
[2018-08-16] MEDS: VANCOMYCIN 1500MG in DEXTROSE 5% WATER 250ML IV SCH ×2 (10:00→11:05)
[2018-08-16] MEDS: PIPERACILLIN/TAZ 2.25G PREMIX 50 ML IV SCH ×2 (10:11→17:41)
[2018-08-16] MEDS ORDERED: MORPHINE SULFATE 2 MG/ML CPJ (NOT FOR IM USE) IV PRN (11:30)
[2018-08-16] MEDS: BLOOD SUGAR DIAGNOSTIC STRIP TEST SCH ×3 (12:26→21:00)
[2018-08-16] MEDS: INSULIN LISPRO 100 UNITS/ML SUBCUT SCH ×3 (12:32→22:21)
[2018-08-16] MEDS: HYDROCODONE/ACETAMINOPHEN 5/325MG TABLET PO PRN (15:13)
[2018-08-16] MEDS ORDERED: SORBITOL 70% SOLN 30ML PO SCH ×2 (16:00→20:00)
[2018-08-16 16:52] LABS: HEMATOCRIT. 21.9 % (36.0-48.0); HEMOGLOBIN. 7.5 g/dL (12.0-16.0); MEAN CORPUSCULAR HEMOGLOBIN 30.8 pg (28.0-32.0); MEAN CORPUSCULAR VOLUME 90.4 fL (81.0-99.0); MEAN PLATELET VOLUME 8.4 fl (7.4-10.4); PLATELET 277 x1000/uL (130-400); RED BLOOD CELL COUNT 2.43 mill/uL (4.2-5.4); RED CELL DISTRIBUTION WIDTH 15.2 % (11.6-14.6)
[2018-08-16 17:23] LABS: PLATELET ESTIMATE NORMAL
[2018-08-16] MEDS ORDERED: EPOETIN ALFA 10000UNITS/ML VIAL SUBCUT SCH (21:00)
[2018-08-16] MEDS: PANTOPRAZOLE SODIUM 40 MG/VIAL IV SCH (22:17)
[2018-08-17 00:24] VITALS: BP 182/80
[2018-08-17 02:00] VITALS: BP 158/86
[2018-08-17] MEDS: PIPERACILLIN/TAZ 2.25G PREMIX 50 ML IV SCH ×3 (02:17→09:23)
[2018-08-17 03:47] LABS: HEMATOCRIT 23.8 % (36.0-48.0); HEMOGLOBIN 8.2 g/dL (12.0-16.0)
[2018-08-17 04:00] VITALS: BP 172/84
[2018-08-17] MEDS: BLOOD SUGAR DIAGNOSTIC STRIP TEST SCH (06:50)
[2018-08-17] MEDS: INSULIN LISPRO 100 UNITS/ML SUBCUT SCH (07:20)
[2018-08-17 08:00] VITALS: BP 150/69
[2018-08-17] MEDS: PANTOPRAZOLE SODIUM 40 MG/VIAL IV SCH ×2 (08:51→09:00)
[2018-08-17] MEDS: HYDROCODONE/ACETAMINOPHEN 5/325MG TABLET PO PRN (08:51)
[2018-08-17] MEDS ORDERED: CARVEDILOL 12.5MG TABLET PO SCH (09:00)
[2018-08-17 10:00] VITALS: BP 165/99
[2018-08-17] MEDS ORDERED: LOSARTAN POTASSIUM 100 MG TABLET PO SCH (10:45)
== END 2018-08-17 12:10 | disposition left against medical advice (07) | DRG 871 ==
LOC: ER 22:14 → 3WST 08-16 00:40 → EDBEDREQDT 08-16 00:48 → EDBEDREQTM 08-16 00:48 → EDBEDREQSVC 08-16 00:48 → EDBEDREQ 08-16 00:48 → ENRESERV 08-16 01:00
PROVIDERS: ADMIT Internal Medicine; ATTEND Internal Medicine
PROC: 5A1D70Z Performance of Urinary Filtration, Intermittent, Less than 6 Hours Per Day (ICD-10-PCS; principal; 2018-08-17)
DX: A41.9 Sepsis, unspecified organism (principal); E43 Unspecified severe protein-calorie malnutrition; N18.6 End stage renal disease; K92.2 Gastrointestinal hemorrhage, unspecified; E11.52 Type 2 diabetes mellitus with diabetic peripheral angiopathy with gangrene; I13.2 Hypertensive heart and chronic kidney disease with heart failure and with stage 5 chronic kidney disease, or end stage renal disease; M86.9 Osteomyelitis, unspecified; D50.0 Iron deficiency anemia secondary to blood loss (chronic); E11.21 Type 2 diabetes mellitus with diabetic nephropathy; E11.22 Type 2 diabetes mellitus with diabetic chronic kidney disease; E11.42 Type 2 diabetes mellitus with diabetic polyneuropathy; E11.621 Type 2 diabetes mellitus with foot ulcer; E11.69 Type 2 diabetes mellitus with other specified complication; E78.00 Pure hypercholesterolemia, unspecified; E78.5 Hyperlipidemia, unspecified; F12.90 Cannabis use, unspecified, uncomplicated; F17.210 Nicotine dependence, cigarettes, uncomplicated; I50.9 Heart failure, unspecified; J44.9 Chronic obstructive pulmonary disease, unspecified; K21.9 Gastro-esophageal reflux disease without esophagitis; F32.9 Major depressive disorder, single episode, unspecified; L97.519 Non-pressure chronic ulcer of other part of right foot with unspecified severity; L97.529 Non-pressure chronic ulcer of other part of left foot with unspecified severity; W18.39XA Other fall on same level, initial encounter; E83.39 Other disorders of phosphorus metabolism; Z53.21 Procedure and treatment not carried out due to patient leaving prior to being seen by health care provider; Z82.49 Family history of ischemic heart disease and other diseases of the circulatory system; Z83.3 Family history of diabetes mellitus; Z86.73 Personal history of transient ischemic attack (TIA), and cerebral infarction without residual deficits; Z87.11 Personal history of peptic ulcer disease; Z89.431 Acquired absence of right foot; Z89.519 Acquired absence of unspecified leg below knee; Z90.711 Acquired absence of uterus with remaining cervical stump; Z91.15 Patient's noncompliance with renal dialysis; Z91.19 Patient's noncompliance with other medical treatment and regimen; Z99.2 Dependence on renal dialysis; Z68.26 Body mass index [BMI] 26.0-26.9, adult; Y93.89 Activity, other specified; Y92.89 Other specified places as the place of occurrence of the external cause; Y99.8 Other external cause status
CPT/HCPCS: 36415; 71045; 72170; 73630; 80320; 82962; 83605; 84145; 84484; 85014; 85018; 86850; 86900; 86920; 93005; 93923; 96361; 96365; 96366; 96368; 96375; 99291; C9113; J0885; J1815; J2270; J2543; J3370; J3490; J7030; J7060; P9016; G0480

== ENCOUNTER 2018-08-23 07:21 | Inpatient (IN) | payer MEDICARE, MEDICAID ==
[~2018-08-23] VITALS: Ht 165.1 cm; Wt 69.9 kg
[2018-08-23] VITALS (23 sets, daily range): BP systolic 171–186; BP diastolic 74–90
[2018-08-23] MEDS ORDERED: SODIUM CHLORIDE 0.9% 1000ML BAG (SEPSIS BOLUS) IV ONE (08:30)
[2018-08-23 08:47] LABS: HEMATOCRIT. 26.4 % (36.0-48.0); HEMOGLOBIN. 8.5 g/dL (12.0-16.0); MEAN CORPUSCULAR HEMOGLOBIN 29.6 pg (28.0-32.0); MEAN CORPUSCULAR VOLUME 91.7 fL (81.0-99.0); MEAN PLATELET VOLUME 7.8 fl (7.4-10.4); PLATELET 792 x1000/uL (130-400); RED BLOOD CELL COUNT 2.88 mill/uL (4.2-5.4); RED CELL DISTRIBUTION WIDTH 16.3 % (11.6-14.6)
[2018-08-23 08:53] LABS: CHLORIDE 98 mEq/L (98-107)
[2018-08-23 08:55] LABS: INR 1.3; PROTHROMBIN TIME 12.7 sec (9.6-11.0)
[2018-08-23 09:23] LABS: PLATELET ESTIMATE MARKEDLY INCREASED
[2018-08-23] MEDS ORDERED: PIPERACILLIN/TAZ 3.375G PREMIX 50 ML IV ONE (10:00)
[2018-08-23] MEDS ORDERED: VANCOMYCIN 1 G PREMIX 200 ML IV ONE (10:00)
[2018-08-23 10:17] LABS: CLARITY URINE CLEAR (CLEAR); COLOR URINE YELLOW (YELLOW); KETONES URINE NEGATIVE (NEGATIVE); LEUKOCYTE ESTERASE URINE TRACE (NEGATIVE); NITRITE URINE NEGATIVE (NEGATIVE); OCCULT BLOOD URINE NEGATIVE (NEGATIVE); PROTEIN URINE 2+ (NEGATIVE); SPECIFIC GRAVITY URINE 1.015 (1.005-1.030); UROBILINOGEN URINE 0.2 E.U./dL (0.2-1.0)
[2018-08-23] MEDS ORDERED: ACETAMINOPHEN 325MG TABLET PO PRN (12:15)
[2018-08-23] MEDS ORDERED: GUAIFENESIN 200MG/10ML SUGAR FREE UDC PO PRN (12:15)
[2018-08-23] MEDS ORDERED: MAGNESIUM/ALUMINUM HYDROXIDE/SIMETHICONE 30ML UDC PO PRN (12:15)
[2018-08-23] MEDS ORDERED: LORAZEPAM 2MG/ML CPJ IV PRN (12:15)
[2018-08-23] MEDS ORDERED: IPRATROPIUM/ALBUTEROL 0.5-3(2.5)MG/3ML NEB INH PRN (12:15)
[2018-08-23] MEDS ORDERED: DOCUSATE SODIUM 100MG CAPSULE PO PRN (12:15)
[2018-08-23] MEDS ORDERED: ENOXAPARIN 30MG/0.3ML SYR SUBCUT NR (13:45)
[2018-08-23] MEDS ORDERED: LEVOFLOXACIN 500MG PREMIX 100 ML IV NR (14:00)
[2018-08-23] MEDS: MORPHINE SULFATE 2 MG/ML CPJ (NOT FOR IM USE) IV PRN (15:18)
[2018-08-23] MEDS ORDERED: NALOXONE HCL 1 MG/ML 2ML VIAL IV ONE (15:45)
[2018-08-23] MEDS ORDERED: NALOXONE HCL 0.4 MG/ML 1ML VIAL IV ONE (15:45)
[2018-08-23] MEDS ORDERED: ETOMIDATE 2MG/ML 10ML VIAL IV ONE ×2 (15:46→16:00)
[2018-08-23] MEDS ORDERED: SUCCINYLCHOLINE CHLORIDE 200MG/10ML IV ONE ×2 (15:46→16:00)
[2018-08-23] MEDS ORDERED: FENTANYL CITRATE/PF 50MCG/ML 2ML VIAL IV ONE (16:00)
[2018-08-23] MEDS ORDERED: PROPOFOL 10MG/ML 100ML 100 ML IV ONE (16:00)
[2018-08-23 16:25] LABS: BG BASE EXCESS -2.3 mmol/L (-2.0-2.0); BG CARBOXYHEMOGLOBIN 0.7 % (0.5-1.5); BG DEOXYHEMOGLOBIN 5.5 % (0.0-5.0); BG FRACTION INSPIRED OXYGEN 40; BG HCO3 ACT 23.4 mmol/L (22.0-26.0); BG METHEMOGLOBIN 0.2 % (0.0-1.5); BG OXYGEN SATURATION 94.5 % (92.0-98.5); BG OXYHEMOGLOBIN 93.6 % (94.0-97.0); BG PCO2 44.7 mmHg (35.0-45.0); BG PH 7.337 (7.350-7.450); BG PO2 83.3 mmHg (75.0-100.0); BG SAMPLE SITE RIGHT BRACHIAL; BG TIDAL VOLUME(mL) 500 mL; BG TOTAL HEMOGLOBIN 8.5 g/dL (12.0-18.0); BG VENT MODE VENT - A/C; BG VENT RATE 16 set
[2018-08-23] MEDS ORDERED: NA PHOS,M-B/NA PHOS,DI-BA ENEMA 118ML PR PRN (20:00)
[2018-08-23] MEDS ORDERED: DEXTROSE 50% WATER 50ML SYRINGE IV PRN (21:15)
[2018-08-23] MEDS ORDERED: INSULIN LISPRO 100 UNITS/ML SUBCUT SCH (21:30)
[2018-08-23] MEDS ORDERED: BLOOD SUGAR DIAGNOSTIC STRIP TEST SCH (21:30)
[2018-08-23] MEDS: CLONIDINE 0.1MG TABLET PO PRN (21:33)
[2018-08-23] MEDS: PROPOFOL 10MG/ML 100ML 100 ML IV PRN (23:52)
[2018-08-23] MEDS: BLOOD SUGAR DIAGNOSTIC STRIP TEST SCH (23:55)
[2018-08-23] MEDS: INSULIN LISPRO 100 UNITS/ML SUBCUT SCH (23:59)
[2018-08-24] VITALS (66 sets, daily range): BP systolic 58–185; BP diastolic 13–90
[2018-08-24 05:36] LABS: BASOPHILS % 0.5 % (0.0-2.0); EOSINOPHILS % 1.3 % (0.0-5.0); HEMATOCRIT. 24.3 % (36.0-48.0); HEMOGLOBIN. 7.8 g/dL (12.0-16.0); LYMPHOCYTES % 9.1 % (20.0-50.0); MEAN CORPUSCULAR HEMOGLOBIN 29.6 pg (28.0-32.0); MEAN CORPUSCULAR VOLUME 92.4 fL (81.0-99.0); MEAN PLATELET VOLUME 7.6 fl (7.4-10.4); NEUTROPHILS % 85.1 % (40.0-76.0); PLATELET 636 x1000/uL (130-400); RED BLOOD CELL COUNT 2.63 mill/uL (4.2-5.4); RED CELL DISTRIBUTION WIDTH 16.2 % (11.6-14.6)
[2018-08-24 05:41] LABS: CHLORIDE 104 mEq/L (98-107)
[2018-08-24 05:53] LABS: PHOSPHORUS 4.5 mg/dL (2.5-4.9)
[2018-08-24 05:54] LABS: LDL CHOLESTEROL 45 mg/dL (5-100)
[2018-08-24 05:55] LABS: HDL CHOLESTEROL 34 mg/dL (40-59)
[2018-08-24 05:56] LABS: T4 FREE 0.78 ng/dL (0.76-1.46)
[2018-08-24] MEDS: INSULIN LISPRO 100 UNITS/ML SUBCUT SCH ×3 (06:00→17:03)
[2018-08-24] MEDS: BLOOD SUGAR DIAGNOSTIC STRIP TEST SCH ×3 (06:49→16:56)
[2018-08-24 07:16] LABS: BG BASE EXCESS 1.3 mmol/L (-2.0-2.0); BG CARBOXYHEMOGLOBIN 1.1 % (0.5-1.5); BG DEOXYHEMOGLOBIN 2.5 % (0.0-5.0); BG HCO3 ACT 24.7 mmol/L (22.0-26.0); BG METHEMOGLOBIN 0.1 % (0.0-1.5); BG OXYGEN SATURATION 97.5 % (92.0-98.5); BG OXYHEMOGLOBIN 96.3 % (94.0-97.0); BG PCO2 33.9 mmHg (35.0-45.0); BG PH 7.481 (7.350-7.450); BG PO2 97.1 mmHg (75.0-100.0); BG SAMPLE SITE RIGHT RADIAL; BG TIDAL VOLUME(mL) 500 mL; BG TOTAL HEMOGLOBIN 8.2 g/dL (12.0-18.0); BG VENT MODE VENT - A/C; BG VENT RATE 16 set
[2018-08-24] MEDS ORDERED: LIDOCAINE HCL/PF 1% 2ML VIAL ONE (07:53)
[2018-08-24] MEDS: ENOXAPARIN 30MG/0.3ML SYR SUBCUT SCH (09:16)
[2018-08-24] MEDS: ASPIRIN 81MG EC TABLET PO SCH (09:17)
[2018-08-24] MEDS: PROPOFOL 10MG/ML 100ML 100 ML IV PRN ×2 (09:27→15:44)
[2018-08-24] MEDS ORDERED: IPRATROPIUM/ALBUTEROL 0.5-3(2.5)MG/3ML NEB HHN PRN (09:45)
[2018-08-24] MEDS: PIPERACILLIN/TAZ 2.25G PREMIX 50 ML IV SCH ×2 (11:04→19:01)
[2018-08-24] MEDS: NIFEDIPINE XL 60MG TAB PO SCH (11:05)
[2018-08-24] MEDS: NICOTINE 21MG PATCH TD SCH (11:05)
[2018-08-24] MEDS ORDERED: VANCOMYCIN 750 MG PREMIX 150 ML IV NR (11:30)
[2018-08-24] MEDS: IPRATROPIUM/ALBUTEROL 0.5-3(2.5)MG/3ML NEB HHN SCH ×3 (11:56→20:18)
[2018-08-24] MEDS ORDERED: ENOXAPARIN 40MG/0.4ML SYR SUBCUT SCH (12:15)
[2018-08-24] MEDS: CLONIDINE 0.1MG TABLET PO SCH ×2 (13:56→21:34)
[2018-08-24] MEDS: NOREPINEPHRINE 16 MG in DEXT 5% WATER 234 ML IV PRN (19:03)
[2018-08-24] MEDS: CARVEDILOL 12.5MG TABLET PO SCH (21:00)
[2018-08-24] MEDS: MORPHINE SULFATE 2 MG/ML CPJ (NOT FOR IM USE) IV PRN (22:02)
[2018-08-25] VITALS (98 sets, daily range): BP systolic 52–154; BP diastolic 26–104
[2018-08-25] MEDS ORDERED: PROPOFOL 10MG/ML 100ML 100 ML IV PRN (00:15)
[2018-08-25] MEDS: IPRATROPIUM/ALBUTEROL 0.5-3(2.5)MG/3ML NEB HHN SCH ×6 (00:26→20:03)
[2018-08-25] MEDS: INSULIN LISPRO 100 UNITS/ML SUBCUT SCH ×4 (01:05→17:49)
[2018-08-25] MEDS: PIPERACILLIN/TAZ 2.25G PREMIX 50 ML IV SCH ×3 (02:40→18:08)
[2018-08-25] MEDS: MORPHINE SULFATE 2 MG/ML CPJ (NOT FOR IM USE) IV PRN ×3 (03:07→21:07)
[2018-08-25] MEDS: CLONIDINE 0.1MG TABLET PO SCH ×3 (05:43→22:00)
[2018-08-25 06:42] LABS: HEMATOCRIT. 22.9 % (36.0-48.0); HEMOGLOBIN. 7.5 g/dL (12.0-16.0); MEAN CORPUSCULAR HEMOGLOBIN 29.4 pg (28.0-32.0); MEAN CORPUSCULAR VOLUME 90.2 fL (81.0-99.0); MEAN PLATELET VOLUME 7.8 fl (7.4-10.4); PLATELET 720 x1000/uL (130-400); RED BLOOD CELL COUNT 2.54 mill/uL (4.2-5.4); RED CELL DISTRIBUTION WIDTH 16.6 % (11.6-14.6)
[2018-08-25] MEDS: BLOOD SUGAR DIAGNOSTIC STRIP TEST SCH ×4 (06:58→17:49)
[2018-08-25 07:48] LABS: PLATELET ESTIMATE INCREASED
[2018-08-25] MEDS: NIFEDIPINE XL 60MG TAB PO SCH (09:00)
[2018-08-25] MEDS: CARVEDILOL 12.5MG TABLET PO SCH ×2 (09:00→20:25)
[2018-08-25] MEDS: ASPIRIN 81MG EC TABLET PO SCH (09:01)
[2018-08-25] MEDS: FOLIC ACID/VITAMIN B COMP W-C TABLET PO SCH (09:01)
[2018-08-25] MEDS: ENOXAPARIN 30MG/0.3ML SYR SUBCUT SCH (09:02)
[2018-08-25] MEDS: NICOTINE 21MG PATCH TD SCH (09:02)
[2018-08-25] MEDS ORDERED: DOCUSATE SODIUM SUGAR FREE 100MG/10ML UDC NG SCH (09:45)
[2018-08-25 12:00] LABS: BG BASE EXCESS -2.1 mmol/L (-2.0-2.0); BG CARBOXYHEMOGLOBIN 0.5 % (0.5-1.5); BG FRACTION INSPIRED OXYGEN 40; BG HCO3 ACT 22.5 mmol/L (22.0-26.0); BG METHEMOGLOBIN 0.4 % (0.0-1.5); BG OXYHEMOGLOBIN 98.1 % (94.0-97.0); BG PH 7.401 (7.350-7.450); BG PO2 146.9 mmHg (75.0-100.0); BG PRESSURE SUPPORT 8; BG SAMPLE SITE RIGHT RADIAL; BG TOTAL HEMOGLOBIN 6.2 g/dL (12.0-18.0); BG VENT MODE VENT - CPAP
[2018-08-25] MEDS ORDERED: LEVOFLOXACIN 500MG PREMIX 100 ML IV SCH (12:00)
[2018-08-26] VITALS (78 sets, daily range): BP systolic 59–161; BP diastolic 25–105
[2018-08-26] MEDS: IPRATROPIUM/ALBUTEROL 0.5-3(2.5)MG/3ML NEB HHN SCH ×6 (00:13→20:20)
[2018-08-26] MEDS: BLOOD SUGAR DIAGNOSTIC STRIP TEST SCH ×4 (00:41→18:10)
[2018-08-26] MEDS: MORPHINE SULFATE 2 MG/ML CPJ (NOT FOR IM USE) IV PRN ×5 (01:18→19:46)
[2018-08-26] MEDS: PIPERACILLIN/TAZ 2.25G PREMIX 50 ML IV SCH ×3 (03:02→22:40)
[2018-08-26] MEDS: CLONIDINE 0.1MG TABLET PO SCH ×3 (06:00→22:00)
[2018-08-26] MEDS: INSULIN LISPRO 100 UNITS/ML SUBCUT SCH ×4 (06:00→18:00)
[2018-08-26 06:06] LABS: MEAN CORPUSCULAR HEMOGLOBIN 29.8 pg (28.0-32.0); MEAN CORPUSCULAR VOLUME 91.5 fL (81.0-99.0); MEAN PLATELET VOLUME 7.7 fl (7.4-10.4); PLATELET 427 x1000/uL (130-400); RED BLOOD CELL COUNT 2.26 mill/uL (4.2-5.4)
[2018-08-26 06:19] LABS: PHOSPHORUS 6.4 mg/dL (2.5-4.9)
[2018-08-26] MEDS: NOREPINEPHRINE 16 MG in DEXT 5% WATER 234 ML IV PRN (06:36)
[2018-08-26 06:55] LABS: HEMATOCRIT. 20.7 % (36.0-48.0); HEMOGLOBIN. 6.7 g/dL (12.0-16.0)
[2018-08-26] MEDS: CARVEDILOL 12.5MG TABLET PO SCH ×2 (09:00→21:00)
[2018-08-26] MEDS: NIFEDIPINE XL 60MG TAB PO SCH (09:00)
[2018-08-26] MEDS ORDERED: IOHEXOL-350 100 ML BOTTLE ONE (09:28)
[2018-08-26] MEDS: ASPIRIN 81MG EC TABLET PO SCH (09:29)
[2018-08-26] MEDS: DOCUSATE SODIUM SUGAR FREE 100MG/10ML UDC NG PRN (09:29)
[2018-08-26] MEDS: ENOXAPARIN 30MG/0.3ML SYR SUBCUT SCH (09:29)
[2018-08-26] MEDS: NICOTINE 21MG PATCH TD SCH (09:29)
[2018-08-26] MEDS: FOLIC ACID/VITAMIN B COMP W-C TABLET PO SCH (09:29)
[2018-08-26] MEDS: OMEPRAZOLE 20MG CAPSULE EXTENDED RELEASE PO SCH (09:30)
[2018-08-26] MEDS ORDERED: MIDODRINE HCL 5MG TABLET PO SCH (11:15)
[2018-08-26] MEDS: HYDROCODONE/ACETAMINOPHEN 5/325MG TABLET PO PRN ×3 (12:33→22:41)
[2018-08-26 15:20] LABS: PLATELET ESTIMATE INCREASED
[2018-08-26] MEDS: SEVELAMER CARBONATE 800 MG TABLET PO SCH (17:52)
[2018-08-27] VITALS (86 sets, daily range): BP systolic 53–197; BP diastolic 34–133
[2018-08-27] MEDS: MORPHINE SULFATE 2 MG/ML CPJ (NOT FOR IM USE) IV PRN ×4 (00:12→15:17)
[2018-08-27] MEDS: BLOOD SUGAR DIAGNOSTIC STRIP TEST SCH ×5 (00:27→18:46)
[2018-08-27] MEDS: IPRATROPIUM/ALBUTEROL 0.5-3(2.5)MG/3ML NEB HHN SCH ×6 (00:45→20:33)
[2018-08-27] MEDS: NOREPINEPHRINE 16 MG in DEXT 5% WATER 234 ML IV PRN (04:34)
[2018-08-27] MEDS: INSULIN LISPRO 100 UNITS/ML SUBCUT SCH ×4 (06:00→18:00)
[2018-08-27] MEDS: CLONIDINE 0.1MG TABLET PO SCH ×3 (06:00→22:39)
[2018-08-27] MEDS: PIPERACILLIN/TAZ 2.25G PREMIX 50 ML IV SCH ×3 (06:21→22:39)
[2018-08-27 07:12] LABS: HEMATOCRIT. 22.6 % (36.0-48.0); HEMOGLOBIN. 7.3 g/dL (12.0-16.0); MEAN CORPUSCULAR VOLUME 86.9 fL (81.0-99.0); PLATELET 454 x1000/uL (130-400); RED CELL DISTRIBUTION WIDTH 17.9 % (11.6-14.6)
[2018-08-27] MEDS: OMEPRAZOLE 20MG CAPSULE EXTENDED RELEASE PO SCH (08:02)
[2018-08-27] MEDS: SEVELAMER CARBONATE 800 MG TABLET PO SCH ×3 (08:17→18:51)
[2018-08-27] MEDS: CARVEDILOL 12.5MG TABLET PO SCH (08:44)
[2018-08-27] MEDS: FOLIC ACID/VITAMIN B COMP W-C TABLET PO SCH (08:53)
[2018-08-27] MEDS: NICOTINE 21MG PATCH TD SCH (08:53)
[2018-08-27] MEDS: ASPIRIN 81MG EC TABLET PO SCH (08:53)
[2018-08-27] MEDS: DOCUSATE SODIUM SUGAR FREE 100MG/10ML UDC NG PRN (08:53)
[2018-08-27] MEDS: HYDROCODONE/ACETAMINOPHEN 5/325MG TABLET PO PRN (09:49)
[2018-08-27] MEDS ORDERED: HYDROCODONE/ACETAMINOPHEN 5/325MG TABLET PO PRN (10:00)
[2018-08-27] MEDS: DIPHENHYDRAMINE 50MG/ML VIAL IV PRN ×2 (14:40→20:01)
[2018-08-27] MEDS: OXYCODONE HCL/ACETAMINOPHEN 5/325MG TABLET PO PRN ×2 (16:10→22:30)
[2018-08-27] MEDS: MIDODRINE HCL 5MG TABLET PO SCH (16:17)
[2018-08-27] MEDS ORDERED: SORBITOL 70% SOLN 30ML PO NR (18:00)
[2018-08-27] MEDS: DOCUSATE SODIUM 250MG CAPSULE PO SCH (18:50)
[2018-08-27] MEDS: CARVEDILOL 3.125 MG TABLET PO SCH (20:01)
[2018-08-27 20:51] LABS: PLATELET ESTIMATE INCREASED
[2018-08-27 22:11] LABS: TOTAL IRON BINDING CAPACITY 92 ug/dL (250-450)
[2018-08-28] VITALS (55 sets, daily range): BP systolic 40–159; BP diastolic 14–99
[2018-08-28] MEDS: IPRATROPIUM/ALBUTEROL 0.5-3(2.5)MG/3ML NEB HHN SCH ×7 (00:28→23:21)
[2018-08-28] MEDS: BLOOD SUGAR DIAGNOSTIC STRIP TEST SCH ×4 (00:32→18:00)
[2018-08-28] MEDS: OXYCODONE HCL/ACETAMINOPHEN 5/325MG TABLET PO PRN ×3 (04:57→19:13)
[2018-08-28] MEDS: CLONIDINE 0.1MG TABLET PO SCH ×2 (05:36→22:00)
[2018-08-28] MEDS: INSULIN LISPRO 100 UNITS/ML SUBCUT SCH ×4 (06:00→18:00)
[2018-08-28 06:19] LABS: HEMATOCRIT. 23.7 % (36.0-48.0); HEMOGLOBIN. 7.7 g/dL (12.0-16.0); MEAN CORPUSCULAR HEMOGLOBIN 28.4 pg (28.0-32.0); MEAN CORPUSCULAR VOLUME 86.8 fL (81.0-99.0); MEAN PLATELET VOLUME 7.3 fl (7.4-10.4); PLATELET 401 x1000/uL (130-400); RED BLOOD CELL COUNT 2.73 mill/uL (4.2-5.4); RED CELL DISTRIBUTION WIDTH 17.5 % (11.6-14.6)
[2018-08-28 06:20] LABS: INR 1.3; PROTHROMBIN TIME 13.6 sec (9.6-11.0)
[2018-08-28 06:24] LABS: PHOSPHORUS 5.7 mg/dL (2.5-4.9)
[2018-08-28] MEDS: PIPERACILLIN/TAZ 2.25G PREMIX 50 ML IV SCH ×2 (06:50→19:05)
[2018-08-28] MEDS: OMEPRAZOLE 20MG CAPSULE EXTENDED RELEASE PO SCH (06:50)
[2018-08-28 07:45] LABS: PLATELET ESTIMATE SLIGHTLY INCREASED
[2018-08-28] MEDS: DOCUSATE SODIUM 250MG CAPSULE PO SCH ×2 (08:58→17:00)
[2018-08-28] MEDS: FOLIC ACID/VITAMIN B COMP W-C TABLET PO SCH (08:58)
[2018-08-28] MEDS: SEVELAMER CARBONATE 800 MG TABLET PO SCH ×2 (08:58→16:54)
[2018-08-28] MEDS: CARVEDILOL 3.125 MG TABLET PO SCH ×2 (08:58→22:00)
[2018-08-28] MEDS: ASPIRIN 81MG EC TABLET PO SCH (08:58)
[2018-08-28] MEDS: NICOTINE 21MG PATCH TD SCH (08:58)
[2018-08-28 09:24] LABS: BG BASE EXCESS -1.4 mmol/L (-2.0-2.0); BG CARBOXYHEMOGLOBIN 1.3 % (0.5-1.5); BG DEOXYHEMOGLOBIN 4.2 % (0.0-5.0); BG FRACTION INSPIRED OXYGEN 21; BG HCO3 ACT 23.8 mmol/L (22.0-26.0); BG OXYGEN SATURATION 95.7 % (92.0-98.5); BG OXYHEMOGLOBIN 94.5 % (94.0-97.0); BG PH 7.371 (7.350-7.450); BG PO2 80.9 mmHg (75.0-100.0); BG SAMPLE SITE RIGHT BRACHIAL; BG TOTAL HEMOGLOBIN 8.5 g/dL (12.0-18.0); BG VENT MODE ROOM AIR
[2018-08-28] MEDS ORDERED: SORBITOL 70% SOLN 30ML PO SCH (11:45)
[2018-08-28] MEDS: MIDODRINE HCL 5MG TABLET PO SCH ×2 (12:14→16:55)
[2018-08-28 16:01] LABS: HEMATOCRIT 26.6 % (36.0-48.0); HEMOGLOBIN 8.7 g/dL (12.0-16.0)
[2018-08-28] MEDS: DIPHENHYDRAMINE 50MG/ML VIAL IV PRN (16:39)
[2018-08-28] MEDS ORDERED: VANCOMYCIN 750 MG PREMIX 150 ML IV SCH (21:00)
[2018-08-29] VITALS (11 sets, daily range): BP systolic 50–172; BP diastolic 29–121
[2018-08-29] MEDS: BLOOD SUGAR DIAGNOSTIC STRIP TEST SCH ×4 (00:02→18:12)
[2018-08-29] MEDS: OXYCODONE HCL/ACETAMINOPHEN 5/325MG TABLET PO PRN ×4 (01:19→22:05)
[2018-08-29] MEDS: PIPERACILLIN/TAZ 2.25G PREMIX 50 ML IV SCH ×3 (03:09→18:19)
[2018-08-29] MEDS: IPRATROPIUM/ALBUTEROL 0.5-3(2.5)MG/3ML NEB HHN SCH ×5 (04:30→20:00)
[2018-08-29] MEDS: CLONIDINE 0.1MG TABLET PO SCH ×3 (06:00→22:00)
[2018-08-29] MEDS: INSULIN LISPRO 100 UNITS/ML SUBCUT SCH ×4 (06:00→18:00)
[2018-08-29] MEDS: OMEPRAZOLE 20MG CAPSULE EXTENDED RELEASE PO SCH (08:09)
[2018-08-29] MEDS: SEVELAMER CARBONATE 800 MG TABLET PO SCH ×3 (08:09→18:05)
[2018-08-29] MEDS: ASPIRIN 81MG EC TABLET PO SCH (08:09)
[2018-08-29] MEDS: FOLIC ACID/VITAMIN B COMP W-C TABLET PO SCH (08:09)
[2018-08-29] MEDS: CARVEDILOL 3.125 MG TABLET PO SCH ×2 (08:10→21:00)
[2018-08-29] MEDS: DOCUSATE SODIUM 250MG CAPSULE PO SCH ×2 (08:10→18:06)
[2018-08-29] MEDS: NICOTINE 21MG PATCH TD SCH (08:11)
[2018-08-29] MEDS: MIDODRINE HCL 5MG TABLET PO SCH ×3 (08:19→18:08)
[2018-08-29] MEDS: DIPHENHYDRAMINE 50MG/ML VIAL IV PRN ×2 (10:27→22:09)
[2018-08-29] MEDS: NIFEDIPINE XL 60MG TAB PO SCH ×2 (11:15→12:18)
[2018-08-29 11:32] LABS: HEMATOCRIT. 24.2 % (36.0-48.0); HEMOGLOBIN. 7.8 g/dL (12.0-16.0); MEAN CORPUSCULAR HEMOGLOBIN 28.1 pg (28.0-32.0); MEAN CORPUSCULAR VOLUME 87.2 fL (81.0-99.0); MEAN PLATELET VOLUME 7.4 fl (7.4-10.4); PLATELET 383 x1000/uL (130-400); RED BLOOD CELL COUNT 2.77 mill/uL (4.2-5.4); RED CELL DISTRIBUTION WIDTH 17.8 % (11.6-14.6)
[2018-08-29 12:15] LABS: FOLIC ACID (FOLATE) SERUM 13.2 ng/mL (>5.38)
[2018-08-29] MEDS: CLONIDINE 0.1MG TABLET PO PRN (12:17)
[2018-08-29 12:56] LABS: PLATELET ESTIMATE NORMAL
[2018-08-29] MEDS ORDERED: SORBITOL 70% SOLN 30ML PO SCH ×2 (16:00→20:00)
[2018-08-29 16:03] LABS: HEMATOCRIT 25.8 % (36.0-48.0); HEMOGLOBIN 8.2 g/dL (12.0-16.0)
[2018-08-29] MEDS: PANTOPRAZOLE SODIUM 40 MG/VIAL IV SCH (22:03)
[2018-08-30] VITALS: BP 116/70
[2018-08-30] MEDS: INSULIN LISPRO 100 UNITS/ML SUBCUT SCH ×4 (00:12→17:57)
[2018-08-30] MEDS: BLOOD SUGAR DIAGNOSTIC STRIP TEST SCH ×4 (00:13→17:31)
[2018-08-30] MEDS: IPRATROPIUM/ALBUTEROL 0.5-3(2.5)MG/3ML NEB HHN SCH ×6 (00:31→20:42)
[2018-08-30] MEDS: PIPERACILLIN/TAZ 2.25G PREMIX 50 ML IV SCH ×3 (04:03→20:07)
[2018-08-30] MEDS: OXYCODONE HCL/ACETAMINOPHEN 5/325MG TABLET PO PRN (04:10)
[2018-08-30] MEDS: DIPHENHYDRAMINE 50MG/ML VIAL IV PRN (04:13)
[2018-08-30] MEDS: CLONIDINE 0.1MG TABLET PO SCH ×3 (06:49→21:22)
[2018-08-30 07:12] LABS: HEMATOCRIT. 24.8 % (36.0-48.0); HEMOGLOBIN. 8.1 g/dL (12.0-16.0); MEAN CORPUSCULAR HEMOGLOBIN 28.4 pg (28.0-32.0); MEAN CORPUSCULAR VOLUME 87.4 fL (81.0-99.0); MEAN PLATELET VOLUME 7.7 fl (7.4-10.4); PLATELET 400 x1000/uL (130-400); RED BLOOD CELL COUNT 2.83 mill/uL (4.2-5.4)
[2018-08-30] MEDS: SEVELAMER CARBONATE 800 MG TABLET PO SCH ×3 (08:00→17:56)
[2018-08-30] MEDS: ASPIRIN 81MG EC TABLET PO SCH (08:06)
[2018-08-30] MEDS: DOCUSATE SODIUM 250MG CAPSULE PO SCH ×2 (08:06→17:00)
[2018-08-30] MEDS: FOLIC ACID/VITAMIN B COMP W-C TABLET PO SCH (08:06)
[2018-08-30] MEDS: MIDODRINE HCL 5MG TABLET PO SCH (08:08)
[2018-08-30] MEDS: NIFEDIPINE XL 60MG TAB PO SCH (08:08)
[2018-08-30] MEDS: CARVEDILOL 3.125 MG TABLET PO SCH ×2 (08:08→21:21)
[2018-08-30 09:00] VITALS: BP 119/59
[2018-08-30 09:14] LABS: PLATELET ESTIMATE NORMAL
[2018-08-30] MEDS: PANTOPRAZOLE SODIUM 40 MG/VIAL IV SCH (09:29)
[2018-08-30] MEDS: NICOTINE 21MG PATCH TD SCH (09:30)
[2018-08-30 10:00] VITALS: BP 143/69
[2018-08-30] MEDS ORDERED: SIMETHICONE 40 MG/0.6 ML 30ML ONE (11:32)
[2018-08-30] MEDS ORDERED: MIDAZOLAM HCL 5 MG/5 ML VIAL ONE (11:53)
[2018-08-30] MEDS ORDERED: FENTANYL CITRATE/PF 50MCG/ML 2ML VIAL ONE ×2 (11:54→12:38)
[2018-08-30] MEDS ORDERED: DIPHENHYDRAMINE 50MG/ML VIAL ONE (11:54)
[2018-08-30] MEDS ORDERED: MIDAZOLAM HCL 5 MG/5 ML VIAL IV NR (12:20)
[2018-08-30] MEDS ORDERED: FENTANYL CITRATE/PF 50MCG/ML 2ML VIAL IV NR (12:20)
[2018-08-30] MEDS ORDERED: DIAZEPAM 5 MG/ML 2ML CPJ IV NR (12:32)
[2018-08-30 15:31] VITALS: BP 131/78
[2018-08-30] MEDS: MORPHINE SULFATE 2 MG/ML CPJ (NOT FOR IM USE) IV PRN (17:31)
[2018-08-30] MEDS: SUCRALFATE 1 G/10 ML UDC PO SCH ×2 (17:57→21:21)
[2018-08-30 20:00] VITALS: BP 153/90
[2018-08-30 20:46] LABS: HEMATOCRIT 32.4 % (36.0-48.0); HEMOGLOBIN 10.1 g/dL (12.0-16.0)
[2018-08-30] MEDS: PANTOPRAZOLE 40MG DR TABLET PO SCH (21:21)
[2018-08-30 22:00] VITALS: BP 60/27
[2018-08-31] VITALS (7 sets, daily range): BP systolic 107–168; BP diastolic 29–109
[2018-08-31] MEDS: IPRATROPIUM/ALBUTEROL 0.5-3(2.5)MG/3ML NEB HHN SCH ×6 (00:22→20:40)
[2018-08-31] MEDS: BLOOD SUGAR DIAGNOSTIC STRIP TEST SCH ×4 (00:41→18:51)
[2018-08-31] MEDS: PIPERACILLIN/TAZ 2.25G PREMIX 50 ML IV SCH ×3 (03:40→21:56)
[2018-08-31] MEDS: CLONIDINE 0.1MG TABLET PO SCH (05:32)
[2018-08-31] MEDS: INSULIN LISPRO 100 UNITS/ML SUBCUT SCH ×4 (05:32→18:00)
[2018-08-31] MEDS: SUCRALFATE 1 G/10 ML UDC PO SCH ×4 (05:58→21:56)
[2018-08-31 07:12] LABS: PHOSPHORUS 3.8 mg/dL (2.5-4.9)
[2018-08-31 07:29] LABS: HEMATOCRIT. 25.3 % (36.0-48.0); HEMOGLOBIN. 8.3 g/dL (12.0-16.0); MEAN CORPUSCULAR HEMOGLOBIN 28.5 pg (28.0-32.0); MEAN CORPUSCULAR VOLUME 87.5 fL (81.0-99.0); MEAN PLATELET VOLUME 7.5 fl (7.4-10.4); PLATELET 401 x1000/uL (130-400); RED BLOOD CELL COUNT 2.89 mill/uL (4.2-5.4); RED CELL DISTRIBUTION WIDTH 18.3 % (11.6-14.6)
[2018-08-31] MEDS: SEVELAMER CARBONATE 800 MG TABLET PO SCH ×3 (08:00→19:00)
[2018-08-31] MEDS: DOCUSATE SODIUM 250MG CAPSULE PO SCH ×2 (08:49→17:00)
[2018-08-31] MEDS: PANTOPRAZOLE 40MG DR TABLET PO SCH ×2 (08:49→21:56)
[2018-08-31] MEDS: NIFEDIPINE XL 60MG TAB PO SCH (08:49)
[2018-08-31] MEDS: NICOTINE 21MG PATCH TD SCH (08:49)
[2018-08-31] MEDS: ASPIRIN 81MG EC TABLET PO SCH (08:50)
[2018-08-31] MEDS: CARVEDILOL 3.125 MG TABLET PO SCH (08:50)
[2018-08-31] MEDS: FOLIC ACID/VITAMIN B COMP W-C TABLET PO SCH (08:50)
[2018-08-31] MEDS: MORPHINE SULFATE 2 MG/ML CPJ (NOT FOR IM USE) IV PRN ×2 (09:11→14:59)
[2018-08-31] MEDS: OXYCODONE HCL/ACETAMINOPHEN 5/325MG TABLET PO PRN ×2 (11:37→18:53)
[2018-08-31] MEDS: CLONIDINE 0.2MG TABLET PO SCH ×2 (13:32→21:57)
[2018-08-31 16:30] LABS: PLATELET ESTIMATE INCREASED
[2018-08-31] MEDS ORDERED: VANCOMYCIN 500 MG PREMIX 100 ML IV NR (20:00)
[2018-08-31] MEDS ORDERED: EPOETIN ALFA 10000UNITS/ML VIAL SUBCUT SCH (21:00)
[2018-08-31] MEDS: CARVEDILOL 6.25 MG TABLET PO SCH (21:57)
[2018-09-01 00:03] VITALS: BP 132/48
[2018-09-01] MEDS: INSULIN LISPRO 100 UNITS/ML SUBCUT SCH ×4 (00:41→18:00)
[2018-09-01] MEDS: IPRATROPIUM/ALBUTEROL 0.5-3(2.5)MG/3ML NEB HHN SCH ×4 (04:00→23:32)
[2018-09-01] MEDS: BLOOD SUGAR DIAGNOSTIC STRIP TEST SCH ×4 (06:00→18:00)
[2018-09-01] MEDS: CLONIDINE 0.2MG TABLET PO SCH ×3 (06:00→22:00)
[2018-09-01] MEDS: SUCRALFATE 1 G/10 ML UDC PO SCH ×4 (08:59→22:11)
[2018-09-01] MEDS: MORPHINE SULFATE 2 MG/ML CPJ (NOT FOR IM USE) IV PRN ×2 (08:59→22:24)
[2018-09-01] MEDS: DOCUSATE SODIUM 250MG CAPSULE PO SCH ×2 (09:00→17:00)
[2018-09-01] MEDS: FOLIC ACID/VITAMIN B COMP W-C TABLET PO SCH (09:00)
[2018-09-01] MEDS: ASPIRIN 81MG EC TABLET PO SCH (09:00)
[2018-09-01] MEDS ORDERED: NIFEDIPINE XL 90MG TAB PO SCH (09:00)
[2018-09-01] MEDS: CARVEDILOL 6.25 MG TABLET PO SCH ×2 (09:01→21:00)
[2018-09-01] MEDS: SEVELAMER CARBONATE 800 MG TABLET PO SCH ×3 (09:12→17:50)
[2018-09-01] MEDS: NICOTINE 21MG PATCH TD SCH (09:12)
[2018-09-01] MEDS: PANTOPRAZOLE 40MG DR TABLET PO SCH ×2 (09:12→22:11)
[2018-09-01] MEDS ORDERED: HYDROMORPHONE HCL/PF 2MG/ML CPJ IV SCH (11:00)
[2018-09-01] MEDS: OXYCODONE HCL/ACETAMINOPHEN 5/325MG TABLET PO PRN (11:39)
[2018-09-01 16:15] LABS: HEMATOCRIT. 25.2 % (36.0-48.0); MEAN CORPUSCULAR HEMOGLOBIN 27.9 pg (28.0-32.0); MEAN CORPUSCULAR VOLUME 87.8 fL (81.0-99.0); MEAN PLATELET VOLUME 7.7 fl (7.4-10.4); PLATELET 398 x1000/uL (130-400); RED BLOOD CELL COUNT 2.87 mill/uL (4.2-5.4); RED CELL DISTRIBUTION WIDTH 17.9 % (11.6-14.6)
[2018-09-01 16:35] LABS: PHOSPHORUS 3.5 mg/dL (2.5-4.9)
[2018-09-01 17:24] LABS: PLATELET ESTIMATE NORMAL
[2018-09-01 22:22] VITALS: BP 152/70
[2018-09-01 22:24] VITALS: BP 152/70
== END 2018-09-02 00:39 | disposition left against medical advice (07) | DRG 871 ==
LOC: ER 07:30 → CVICU 12:17 → EDBEDREQTM 12:20 → EDBEDREQSVC 12:20 → EDBEDREQ 12:20 → CANRESERV 14:46 → ENRESERV 14:46 → EDBEDREQSVC 15:36 → ENRESERV 15:59 → 5EST 08-28 18:15
PROVIDERS: ADMIT Internal Medicine; ATTEND Internal Medicine
PROC: 5A1945Z Respiratory Ventilation, 24-96 Consecutive Hours (ICD-10-PCS; principal; 2018-08-23)
PROC: 0BH17EZ Insertion of Endotracheal Airway into Trachea, Via Natural or Artificial Opening (ICD-10-PCS; 2018-08-23)
PROC: 06HY33Z Insertion of Infusion Device into Lower Vein, Percutaneous Approach (ICD-10-PCS; 2018-08-23)
PROC: 05HY33Z Insertion of Infusion Device into Upper Vein, Percutaneous Approach (ICD-10-PCS; 2018-08-24)
PROC: B54MZZA Ultrasonography of Right Upper Extremity Veins, Guidance (ICD-10-PCS; 2018-08-24)
PROC: 5A1D70Z Performance of Urinary Filtration, Intermittent, Less than 6 Hours Per Day (ICD-10-PCS; 2018-08-24)
PROC: 5A1D70Z Performance of Urinary Filtration, Intermittent, Less than 6 Hours Per Day (ICD-10-PCS; 2018-08-26)
PROC: 30233N1 Transfusion of Nonautologous Red Blood Cells into Peripheral Vein, Percutaneous Approach (ICD-10-PCS; 2018-08-26)
PROC: 5A1D70Z Performance of Urinary Filtration, Intermittent, Less than 6 Hours Per Day (ICD-10-PCS; 2018-08-28)
PROC: 0DB68ZX Excision of Stomach, Via Natural or Artificial Opening Endoscopic, Diagnostic (ICD-10-PCS; 2018-08-30)
PROC: 0DJD8ZZ Inspection of Lower Intestinal Tract, Via Natural or Artificial Opening Endoscopic (ICD-10-PCS; 2018-08-30)
DX: A41.9 Sepsis, unspecified organism (principal); G92 Toxic encephalopathy; N18.6 End stage renal disease; J96.00 Acute respiratory failure, unspecified whether with hypoxia or hypercapnia; K26.4 Chronic or unspecified duodenal ulcer with hemorrhage; K29.81 Duodenitis with bleeding; E46 Unspecified protein-calorie malnutrition; M86.671 Other chronic osteomyelitis, right ankle and foot; N39.0 Urinary tract infection, site not specified; N25.81 Secondary hyperparathyroidism of renal origin; E11.52 Type 2 diabetes mellitus with diabetic peripheral angiopathy with gangrene; F11.20 Opioid dependence, uncomplicated; I13.2 Hypertensive heart and chronic kidney disease with heart failure and with stage 5 chronic kidney disease, or end stage renal disease; I70.92 Chronic total occlusion of artery of the extremities; T42.4X1A Poisoning by benzodiazepines, accidental (unintentional), initial encounter; E86.0 Dehydration; E11.69 Type 2 diabetes mellitus with other specified complication; K29.70 Gastritis, unspecified, without bleeding; K25.9 Gastric ulcer, unspecified as acute or chronic, without hemorrhage or perforation; E87.5 Hyperkalemia; E83.39 Other disorders of phosphorus metabolism; E78.5 Hyperlipidemia, unspecified; D63.8 Anemia in other chronic diseases classified elsewhere; K59.00 Constipation, unspecified; E80.6 Other disorders of bilirubin metabolism; E07.9 Disorder of thyroid, unspecified; E11.22 Type 2 diabetes mellitus with diabetic chronic kidney disease; E11.42 Type 2 diabetes mellitus with diabetic polyneuropathy; E78.00 Pure hypercholesterolemia, unspecified; F17.210 Nicotine dependence, cigarettes, uncomplicated; F32.9 Major depressive disorder, single episode, unspecified; I25.10 Atherosclerotic heart disease of native coronary artery without angina pectoris; I27.20 Pulmonary hypertension, unspecified; Z53.21 Procedure and treatment not carried out due to patient leaving prior to being seen by health care provider; I50.9 Heart failure, unspecified; K21.9 Gastro-esophageal reflux disease without esophagitis; Z90.710 Acquired absence of both cervix and uterus; Z99.2 Dependence on renal dialysis; Z83.3 Family history of diabetes mellitus; Z82.49 Family history of ischemic heart disease and other diseases of the circulatory system; Z86.73 Personal history of transient ischemic attack (TIA), and cerebral infarction without residual deficits; Z89.422 Acquired absence of other left toe(s); Z89.421 Acquired absence of other right toe(s); Y92.89 Other specified places as the place of occurrence of the external cause; Z78.1 Physical restraint status; Z89.511 Acquired absence of right leg below knee
CPT/HCPCS: 31500; 36415; 36600; 71045; 75635; 76937; 80048; 80061; 80202; 82270; 82375; 82607; 82728; 82746; 82805; 82962; 83540; 83550; 83605; 83735; 84100; 84134; 84145; 84439; 84443; 84478; 84484; 85014; 85018; 86850; 86900; 86920; 87070; 88305; 88312; 88313; 92610; 93005; 93306; 94002; 94003; 94640; 96365; 99291; A6261; C1725; C1893; C9113; J0330; J0885; J1170; J1200; J1650; J1815; J1956; J2060; J2250; J2270; J2310; J2543; J2704; J3010; J3370; J3490; J7030; J7040; J7050; J7060; J7620; P9016; Q9967